=== PATIENT | female | born 1940 | race Caucasian/White ===

== ENCOUNTER 2019-04-25 08:24 | Observation (INO) | payer OTHER ==
--- OUTSIDE RECORDS SUMMARY | 2019-04-25 08:26 | XMS REPORT | Summary of Care ---
:1940 Author Organization [facility] Address [address] [place] [id number] Care Team Providers Name Role Phone Freeman Aguiar Primary Care Provider Reason for Visit Reason Comments Follow-up Results Encounter Details Date Type Department Care Team Description 10/22/2018 Office Visit [facility] Robert Quintanilla Late onset Neurology-Maria Guadalupe [place] MD Alzheimer's disease [facility] [address], [address] [place], [place] disturbance ([place] [address] Dx) [phone] Allergies No Known Allergiesdocumented as of this encounter (statuses as of 10/23/2018) Medications Medication Sig Dispensed Refills Start Date End Date Status aspirin (ADULT LOW DOSE Take 81 mg by 0 Active ASPIRIN) 81 mg EC mouth daily. tablet loperamide 2 mg capsule Take 2 mg by 0 Active mouth as needed for Diarrhea. multivit with Take 1 capsule by 0 Active calcium,iron,min mouth daily. (WOMEN'S DAILY MULTIVITAMIN ORAL) donepezil 10 mg tablet Take 1 tablet by 30 tablet 3 09/24/2018 Active mouth at bedtime. mirtazapine 7.5 mg Take 1 tablet by 30 tablet 1 10/22/2018 Active tabletIndications: Late mouth daily. onset Alzheimer's disease with behavioral disturbance documented as of this encounter (statuses as of 10/23/2018) Active Problems Not on filedocumented as of this encounter (statuses as of 10/23/2018) Social History Tobacco Use Types Packs/Day Years Used Date Never Smoker Alcohol Use Drinks/Week oz/Week Comments No Sex Assigned at Date Recorded Not on file Job Start Date Occupation Industry Not on file Not on file Not on file Travel History Travel Start Travel End No recent travel history available. documented as of this encounter Last Filed Vital Signs Vital Sign Reading Time Taken Comments Blood Pressure - - Pulse - - Temperature - - Respiratory Rate - - Oxygen Saturation - - Inhaled Oxygen Concentration - - Weight 54.6 kg (120 lb 6 oz) 10/22/2018 3:33 PM CDT Height 157.5 cm (5' 2") 10/22/2018 3:33 PM CDT Body Mass Index 22.02 10/22/2018 3:33 PM CDT documented in this encounter Patient Instructions Patient InstructionsRobert Quintanilla MD - 10/22/2018 3:20 PM CDT documented in this encounter Progress Notes Robert Quintanilla MD - 10/22/2018 3:20 PM CDT Christine Alcaraz is a 78 year old female. Chief complaint: Dementia, behavioral abnormalities. History: The patient does return, the has been concerned about behavioral abnormalities including agitation, he was wanting some medication treatments for alleviation of this symptomatology. Chuyita sent over a note that said the episodes that she experiences relate to extreme confusion, anger,crying , and paranoia. There may be no particular trigger for these events either. Past Medical History: No other active health problems. Allergies: No medications. Family History: Maternal/Paternal grandparents: No data was provided by the patient. Aunts/uncles(maternal/paternal): No data was provided by the patient. Mother/Father:No data was provided by the patient. Brothers/ Sisters:No data was provided by the patient. Children/Other:No data was provided by the patient. Surgeries: Breast implants. Social history: The patient is and retired. She does not use tobacco products and very seldom will drink a little wine. Current Outpatient Medications: mirtazapine 7.5 mg tablet, Take 1 tablet by mouth daily., Disp: 30 tablet, Rfl: 1 donepezil 10 mg tablet, Take 1 tablet by mouth at bedtime., Disp: 30 tablet , Rfl: 3 aspirin (ADULT LOW DOSE ASPIRIN) 81 mg EC tablet, Take 81 mg by mouth daily., Disp: , Rfl: loperamide 2 mg capsule, Take 2 mg by mouth as needed for Diarrhea., Disp: , Rfl: multivit with calcium,iron,min (WOMEN'S DAILY MULTIVITAMIN ORAL), Take 1 capsule by mouth daily., Disp: , Rfl: Ht 5' 2" (1.575 m) | Wt 120 lb 6 oz (54.6 kg) | BMI 22.02 kg/m General findings: EOMI/VFFTC/PERRL, no facial asymmetry, no new focal weakness of arms, UE tone unchanged, no new focal weakness of legs, LE tone unchanged. The patient was cooperative, and she will follow one step commands. The patient was cooperative during the examination and easily walked in under her own power. Her memory is pretty much gone, very concrete thinking but did not observe any word finding deficits. She was not irritable toward me. No rebound or guarding on abdominal palpation. ICD-10-CM ICD-9-CM 1. Late onset Alzheimer's disease with behavioral disturbance G30.1 331.0 F02.81 294.11 Impression: I had talked about treatment of dementia patients with behavioral problems, there are really no FDA approved medications to treat this issue, but Depakote is something that has been used for mood stabilization, PRN clonazepam is also been utilized however there is a risk of complications with senior citizens like falling for example. 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 I had also mentioned the use of mirtazapine, it may help people settle at nightwhen there is increasing agitation in the evenings. After discussion with the patients , adecision was made to start mirtazapine. Initially the dosage will be 7.5 mg per day and this can be increased as needed. A dosage for example could be added in the evening. The of the patient will otherwise keep the office posted concerning his progress. 13 minutes of the 25 minute office visit was spent discussing the treatment for aberrant behavior is in Alzheimer's type dementia's. Creation of the note was aided by utilizing a cut/paste operation of text from a Microsoft Word template created with [employer]. The text was dictated into the template via Dragon Naturally Speaking. documented in this encounter Plan of Treatment Health Maintenance Due Date Last Done Comments DTaP,Tdap,and Td Vaccines (1 - Tdap) 1959 Zoster Recombinant Vaccine (SHINGRIX) (1 of 2) 1990 Medicare Wellness Visit 2005 Osteoporosis Screening 2005 PNEUMOCOCCAL VACCINES 65+ (1 of 2 - PCV13) 2005 INFLUENZA VACCINE 11/25/2018 documented as of this encounter Results Not on filedocumented in this encounter Visit Diagnoses Diagnosis Late onset Alzheimer's disease with behavioral disturbance - Primary documented in this encounter Insurance Payer Benefit Plan Subscriber ID Effective Dates Phone Address Type / Group [employer] - CHOICE CARE [id number] 2017-Presen Medicare Adv MANAGED t PPO MEDICARE documented as of this encounter
--- OUTSIDE RECORDS SUMMARY | 2019-04-25 08:26 | XMS REPORT ---
:1940 Author Organization [facility] Address [address] [place] [address] Dr. Oliva [address] [place] [address] Care Team Providers Name Role Phone Unavailable Unavailable Unavailable Problems This patient has no known problems. Allergies, Adverse Reactions, Alerts This patient has no known allergies or adverse reactions. Medications This patient has no known medications.
[2019-04-25] MEDS ORDERED: NA CHLORIDE 0.9% 500 ML ONE ×2 (08:38→11:52)
[2019-04-25] MEDS ORDERED: ONDANSETRON 4 MG/2 ML VIAL ONE (08:38)
[2019-04-25 09:15] LABS: Absolute Lymphocytes (CBC) 3.5 K/uL (0.7-4.9); Basophils % 1.4 % (0-1.3); Hematocrit 41.9 % (36.0-45.0); Lymphocytes % 43.9 % (15.3-44.8); MPV 8.8 fL (7.6-11.3); RBC Red Blood Cell Count 4.65 M/uL (3.86-4.86)
[2019-04-25 09:31] LABS: ALT/SGPT 20 U/L (12-78); AST/SGOT 21 U/L (15-37); Albumin 3.1 g/dL (3.4-5.0); Alkaline Phosphatase 72 U/L (45-117); BUN Blood Urea Nitrogen 14 mg/dL (7-18); Bicarbonate 25 mmol/L (21-32); Bilirubin Direct 0.1 mg/dL (0-0.2); Bilirubin Total 0.4 mg/dL (0.2-1.0); Glucose Level 100 mg/dL (74-106); Lipase 129 U/L (73-393); Potassium 3.3 mmol/L (3.5-5.1); Protein, Total 6.7 g/dL (6.4-8.2); Sodium Level 143 mmol/L (136-145); Troponin (Emerg Dept Use Only) < 0.02 ng/mL (0.0-0.045)
--- NOTE | 2019-04-25 10:02 | RAD REPORT ---
EXAM DESCRIPTION: CT - Head Brain Wo Cont - 04/25/2019 9:42 am CLINICAL HISTORY: Headache/vomiting COMPARISON: 2012 MRI TECHNIQUE: Computed axial tomography of the head was obtained. IV contrast was not requested. All CT scans are performed using dose optimization technique as appropriate and may include automated exposure control or mA/KV adjustment according to patient size. FINDINGS: An intracranial bleed is not seen . The ventricles are normal in caliber. No extra-axial fluid collection is noted. Diffuse cerebral atrophy Fluid within the sinuses/ mastoids is not seen. IMPRESSION: No acute intracranial abnormality is seen. If patient's symptoms persist MRI of the bra in would be recommended.
--- NOTE | 2019-04-25 10:08 | RAD REPORT ---
EXAM DESCRIPTION: CT - Abdomen Pelvis W Contrast - 04/25/2019 9:44 am CLINICAL HISTORY: Abdominal pain and vomiting COMPARISON: 2010 TECHNIQUE: Computed axial tomography of the abdomen pelvis was obtained. 100 cc Isovue-300 was admin istered intravenously. Oral contrast was not requested which limits evaluation of bowel. All CT scans are performed using dose optimization technique as appropriate and may include automated exposure control or mA/KV adjustment according to patient size. FINDINGS: The liver, spleen, pancreas, adrenal and kidneys appear unremarkable. Normal appendix. No evidence of diverticulitis. The wall of portions of the ascending colon, descending colon and transverse colon appear mildly to m oderately thickened. This likely indicates a colitis. High-grade stenosis involves the celiac artery IMPRESSION: Mild to moderate colitis
[2019-04-25 11:08] LABS: Urine Blood NEGATIVE (NEG); Urine Glucose NEGATIVE (NEG); Urine Protein NEGATIVE (NEG); Urine Specific Gravity 1.015 (1.005-1.030); Urine pH 6.5 (5.0-7.0)
[2019-04-25 11:11] LABS: Urine Bacteria <20 /HPF (<20); Urine RBC <5 /HPF (NONE SEEN)
[2019-04-25 11:12] LABS: Urine Culture Reflex Order NOT NEEDED
--- NOTE | 2019-04-25 11:17 | EKG ---
Test Date: 2019-04-25 Test Time: 09:08:27 Power Shovel Mechanic: DELORES MEASUREMENT RESULTS: Intervals: Rate: 70 MS: 216 QRSD: 68 QT: 422 QTc: 455 [place]: P: 74 MS: 216 QRS: 30 T: 49 INTERPRETIVE STATEMENTS: Sinus rhythm with sinus arrhythmia with 1st degree AV block Low voltage QRS Borderline ECG Compared to ECG 11/28/2006 05:58:29 First degree AV block now present Sinus bradycardia no longer present Electronically Signed On 04-25-19 11:16:01 DEV OPS ENGINEER by Floyd Carias
[2019-04-25] MEDS ORDERED: CIPROFLOXACIN 400mg IV 400 MG/200 ML BAG IV ONE (11:52)
[2019-04-25] MEDS ORDERED: METRONIDAZOLE 500mg IVPB 500 MG/100 ML BAG IV ONE ×2 (11:52→21:51)
--- NOTE | 2019-04-25 11:56 | ER ---
Nurse's Notes [facility] Name: Christine Alcaraz Age: 79 yrs Sex: Female : 1940 Arrival Date: 04/25/2019 Time: 08:27 Bed 23 Private MD: Diagnosis: Colitis;Dehydration Presentation: 04/25 08:28 Presenting complaint: states: Riding down the road and she said her stomach jl7 hurt and then vomited. Transition of care: patient was not received from another setting of care. Onset of symptoms was April 25, 2019. Risk Assessment: Do you want to hurt yourself or someone else? Patient reports no desire to harm self or others. 08:28 Method Of Arrival: Wheelchair jl7 08:28 Acuity: AYLIN 3 jl7 08:30 Care prior to arrival: None. jl7 08:32 Initial Sepsis Screen: Does the patient meet any 2 criteria? No. Patient's initial jl7 sepsis screen is negative. Does the patient have a suspected source of infection? No. Patient's initial sepsis screen is negative. Historical: - Allergies: 08:30 No Known Allergies; jl7 - Home Meds: 15:44 donepezil oral oral [Active]; jl7 - PMHx: 08:30 Alzheimers; jl7 - Immunization history:: Adult Immunizations unknown. - Coronavirus screen:: The patient has NOT traveled to [place], [place], or [place] in the past 14 days. Proceed with normal triage process as indicated. - Social history:: Smoking status: Patient denies any tobacco usage or history of. - Family history:: not pertinent. - Ebola Screening: : No symptoms or risks identified at this time. - Hospitalizations: : No recent hospitalization is reported. Screenin:31 Abuse screen: Denies threats or abuse. Denies injuries from another. Nutritional jl7 screening: No deficits noted. Tuberculosis screening: No symptoms or risk factors identified. Fall Risk IV access (20 points). Total Tan Fall Scale indicates No Risk (0-24 pts). 08:31 Abuse screen: Denies threats or abuse. Denies injuries from another. Nutritional ph screening: No deficits noted. Tuberculosis screening: No symptoms or risk factors identified. Fall Risk No fall in past 12 months (0 pts). Secondary diagnosis (15 points) Alzheimer's, IV access (20 points). Ambulatory Aid- None/Bed Rest/Nurse Assist (0 pts). Gait- Weak (10 pts.). Mental Status- Oriented to own ability (0 pts). Total Tan Fall Scale indicates High Risk Score (45 or more points). Fall prevention measures have been instituted. Side Rails Up X 2 Placed Close to Nursing Station Frequent Obs/Assessments Occuring Family Present and informed to notify staff if the need to leave the bedside As available patient and family educated on Fall Prevention Program and Strategies. Assessment: 08:30 General: Appears in no apparent distress. uncomfortable, Behavior is calm, cooperative. jl7 Pain: Denies pain. Neuro: Level of Consciousness is awake, alert, obeys commands, Oriented to person. Cardiovascular: Patient's skin is warm and dry. Respiratory: Airway is patent Respiratory effort is even, unlabored, Respiratory pattern is regular, symmetrical. GI: Abdomen is non-distended, Abd is soft and non tender X 4 quads. Reports nausea, vomiting. : No signs and/or symptoms were reported regarding the genitourinary system. Derm: Skin is dry, Skin is pale, Skin temperature is cool. 09:30 Reassessment: Patient appears in no apparent distress at this time. No changes from jl7 previously documented assessment. Patient and/or family updated on plan of care and expected duration. Pain level reassessed. remains at bedside. 10:30 Reassessment: Patient appears in no apparent distress at this time. No changes from jl7 previously documented assessment. Patient and/or family updated on plan of care and expected duration. Pain level reassessed. 11:00 Reassessment: Pt appears to be agitated, refusing to keep BP cuff and pulse ox on, jl7 environmental compliance manager remains in place. 12:30 Reassessment: Pt sitting in bed with eyes closed, respirations even and unlabored, no jl7 signs of distress noted at this time. 12:56 Reassessment: Pt's , Sharif Alcaraz, , will be back in a little while. jl7 13:10 Reassessment: Pt appeared to be uncomfortable, when asked she stated "I don't know but jl7 I just don't feel good. I could easily throw up right now." ERD notified, see MAR for orders. 16:55 Reassessment: Pt very agitated, refusing to stay in the bed, attempting to DC IV, ERD jl7 notified, see MAR for orders. 17:25 Reassessment: Increased agitation noted, Pt keeps trying to walk around the ER halls, jl7 ERD notified, see MAR for orders. 17:45 Reassessment: Pt remains very agitated, ERD notified, see MAR for orders. jl7 23:14 Reassessment: pt becoming restless. hitting nursing staff. ER MD notified. order for jd3 Ativan 1 mg IVP ordered. see MAR. Vital Signs: 08:30 BP 102 / 53; Pulse 74; Resp 16 S; Temp 97.4(O); Pulse Ox 97% on R/A; jl7 09:22 BP 95 / 56; Pulse 63; Resp 15 S; Pulse Ox 96% on R/A; jl7 10:50 BP 92 / 57; Pulse 61; Resp 15 S; Pulse Ox 97% on R/A; jl7 ED Course: 08:27 Patient arrived in ED. ag5 08:29 Triage completed. jl7 08:30 Arm band placed on right wrist. jl7 08:31 Inserted saline lock: 22 gauge in right antecubital area, using aseptic technique. ph Blood collected. 08:31 Patient has correct armband on for positive identification. Placed in gown. Bed in low jl7 position. Call light in reach. Side rails up X2. Adult w/ patient. emergency department coordinator on. Pulse ox on. NIBP on. Warm blanket given. 08:33 Charly De Leon MD is Attending Physician. rn 08:43 Denise Mcdonald RN is Primary Nurse. jl7 09:11 XRAY Chest (1 view) In Process Unspecified. EDMS 09:19 Inserted saline lock: 22 gauge in right antecubital area, using aseptic technique. dh3 Blood collected. 09:22 Initial lab(s) drawn, by ED staff, sent to lab. jl7 09:24 Lactate Sent. dh3 09:42 CT Head Brain wo Cont In Process Unspecified. EDMS 09:42 CT Abd/Pelvis - IV Contrast Only In Process Unspecified. EDMS 10:48 Urine collected: straight cath specimen, clear. Straight cath inserted, using sterile jl7 technique, 16 Fr. Specimen obtained. Returned clear yellow urine. Patient tolerated well. 11:55 Freeman Aguiar MD is Hospitalizing Provider. rn 12:57 No provider procedures requiring assistance completed. Patient admitted, IV remains in jl7 place. intact, No redness/swelling at site. Administered Medications: 08:35 Drug: Zofran 4 mg Route: IVP; Site: right wrist; jl7 09:00 Follow up: Response: No adverse reaction; Nausea is decreased jl7 08:35 Drug: NS 0.9% 500 ml Route: IV; Rate: bolus; Site: right wrist; jl7 09:00 Follow up: Response: No adverse reaction; IV Intake: 500ml jl7 09:00 Follow up: IV Status: Completed infusion jl7 12:00 Drug: NS 0.9% 500 ml Route: IV; Rate: bolus; Site: right antecubital; jl7 13:20 Follow up: Response: No adverse reaction; IV Status: Completed infusion; IV Intake: jl7 500ml 12:00 Drug: Cipro 400 mg Volume: 200 ml; Route: IVPB; Infused Over: 60 mins; Site: right jl7 antecubital; 13:00 Follow up: Response: No adverse reaction; IV Status: Completed infusion jl7 12:20 Drug: Flagyl 500 mg Volume: 100 ml; Route: IVPB; Rate: 200 ml/hr; Infused Over: 30 jl7 mins; Site: right antecubital; 12:50 Follow up: Response: No adverse reaction; IV Status: Completed infusion jl7 13:15 Drug: Phenergan 6.25 mg Route: IVP; Site: right antecubital; jl7 14:00 Follow up: Response: No adverse reaction; Nausea is decreased jl7 17:00 Drug: Ativan 0.25 mg Route: IVP; Site: right antecubital; jl7 17:25 Follow up: Response: No change in condition jl7 17:30 Drug: Ativan 0.25 mg Route: IVP; Site: right antecubital; jl7 17:49 Follow up: Response: No adverse reaction; No change in condition jl7 18:05 Drug: SEROquel 25 mg Route: PO; jl7 23:16 CANCELLED (Physician Discretion): Ativan 1 mg IVP once jd3 23:17 Drug: Ativan 1 mg Route: IVP; Site: right antecubital; jd3 Intake: 09:00 IV: 500ml; Total: 500ml. jl7 13:20 IV: 500ml; Total: 1000ml. jl7 Outcome: 11:56 Decision to Hospitalize by Provider. rn 04/26 14:41 Patient left the ED. ss Signatures: Dispatcher [employer] EDMS Charly De Leon MD MD rn Smirch, Shelby, RN RN ss Hall, Patricia, RN RN Denise Mcdonald RN RN jl7 [facility] Bobby Smiley RN RN jRafael Chatman ag5 Corrections: (The following items were deleted from the chart) 04/25 09:19 08:28 Presenting complaint: states: Riding down the road and she said he jl7 stomach hurt and then vomited jl7
--- NOTE | 2019-04-25 11:56 | EDPHYS ---
Physician Documentation [facility] Name: Christine Alcaraz Age: 79 yrs Sex: Female : 1940 Arrival Date: 04/25/2019 Time: 08:27 Bed 23 Private MD: ED Physician Charly De Leon HPI: 04/25 08:41 This 79 yrs old Female presents to ER via Wheelchair with complaints of rn nausea/vomiting. 08:41 The patient presents to the emergency department with nausea, vomiting. Onset: The rn symptoms/episode began/occurred today. Possible causes: unknown. The symptoms are aggravated by nothing. The symptoms are alleviated by nothing. Severity of symptoms: At their worst the symptoms were moderate in the emergency department the symptoms are unchanged. The patient has not experienced similar symptoms in the past. The patient has not recently seen a physician. 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 Denies headache/focal neuro complaint/abd pain/diarrhea. Shaking, but unknown if fever.. Historical: - Allergies: 08:30 No Known Allergies; jl7 - Home Meds: 15:44 donepezil oral oral [Active]; jl7 - PMHx: 08:30 Alzheimers; jl7 - Immunization history:: Adult Immunizations unknown. - Coronavirus screen:: The patient has NOT traveled to [place], [place], or [place] in the past 14 days. Proceed with normal triage process as indicated. - Social history:: Smoking status: Patient denies any tobacco usage or history of. - Family history:: not pertinent. - Ebola Screening: : No symptoms or risks identified at this time. - Hospitalizations: : No recent hospitalization is reported. ROS: 08:41 Constitutional: Negative for fever, chills, and weight loss, Eyes: Negative for injury, rn pain, redness, and discharge, Neck: Negative for injury, pain, and swelling, Cardiovascular: Negative for chest pain, palpitations, and edema, Respiratory: Negative for shortness of breath, cough, wheezing, and pleuritic chest pain, Abdomen/GI: Negative for abdominal pain,diarrhea, and constipation, : Negative for injury, bleeding, discharge, and swelling, MS/Extremity: Negative for injury and deformity, Skin: Negative for injury, rash, and discoloration, Neuro: Negative for headache, weakness, numbness, tingling, and seizure. Exam: 08:41 Constitutional: This is a well developed, well nourished patient who is awake, alert, rn sitting upright and holding emesis bag Head/Face: Normocephalic, atraumatic. ENT: MMM Neck: Trachea midline, no thyromegaly or masses palpated, and no cervical lymphadenopathy. Supple, full range of motion without nuchal rigidity, or vertebral point tenderness. No Meningismus. Cardiovascular: Regular rate and rhythm. No pulse deficits. Respiratory: No increased work of breathing, no retractions or nasal flaring. Abdomen/GI: soft, non-tender MS/ Extremity: Pulses equal, no cyanosis. Neurovascular intact. Full, normal range of motion. Equal circumference. Neuro: Awake and alert, GCS 15, oriented to person, place. Cranial nerves II-XII grossly intact. Motor strength 4/5 in all extremities. Sensory grossly intact. Vital Signs: 08:30 BP 102 / 53; Pulse 74; Resp 16 S; Temp 97.4(O); Pulse Ox 97% on R/A; jl7 09:22 BP 95 / 56; Pulse 63; Resp 15 S; Pulse Ox 96% on R/A; jl7 10:50 BP 92 / 57; Pulse 61; Resp 15 S; Pulse Ox 97% on R/A; jl7 MDM: 08:33 Patient medically screened. rn 11:53 Differential diagnosis: Nonspecific abd pain, gastritis, diverticulitis, viral rn gastroenteritis, gastroenteritis, colitis. Data reviewed: vital signs, nurses notes, lab test result(s), EKG, radiologic studies, CT scan, and as a result, I will admit patient. Counseling: I had a detailed discussion with the patient and/or guardian regarding: the historical points, exam findings, and any diagnostic results supporting the discharge/admit diagnosis, lab results, radiology results, the need for further work-up and treatment in the hospital. Response to treatment: the patient's symptoms have mildly improved after treatment, and as a result, I will admit patient. Admission orders: after a detailed discussion of the patient's condition and case, the admit orders are written by me. ED course: Will admit to Shawn Aguiar for moderate colitis, borderline BP, feels a little better. Abx administered. . 04/25 08:41 Order name: Basic Metabolic Panel; Complete Time: 10:17 rn 04/25 08:41 Order name: CBC with Diff; Complete Time: 12:54 rn 04/25 08:41 Order name: Creatinine for Radiology; Complete Time: 10:17 rn 04/25 08:41 Order name: Hepatic Function; Complete Time: 10:17 rn 04/25 08:41 Order name: Lipase; Complete Time: 10:17 rn 04/25 08:41 Order name: Urine Culture rn 04/25 08:41 Order name: Urine Microscopic Only; Complete Time: 11: rn 04/25 08:41 Order name: Procalcitonin; Complete Time: 10: rn 04/25 08:41 Order name: Lactate; Complete Time: 10: rn 04/25 08:41 Order name: Troponin (emerg Dept Use Only); Complete Time: 10: rn 04/25 10:49 Order name: Urine Dipstick--Ancillary (enter results); Complete Time: 11:26 eb 04/25 12:35 Order name: Manual Differential; Complete Time: 12:54 EDMS 04/26 06:09 Order name: Basic Metabolic Panel EDMS 04/26 06:13 Order name: CBC with Automated Diff EDMS 04/25 08:41 Order name: CT Head Brain wo Cont; Complete Time: 10:17 rn 04/25 08:41 Order name: CT Abd/Pelvis - IV Contrast Only; Complete Time: 10: rn 04/25 08:41 Order name: EKG; Complete Time: 08:42 rn 04/25 08:44 Order name: XRAY Chest (1 view); Complete Time: 14:21 rn 04/25 16:49 Order name: Diet Clear Liquid; Complete Time: 16:49 dh3 04/25 08:41 Order name: IV Saline Lock; Complete Time: 09:18 rn 04/25 08:41 Order name: Labs collected and sent; Complete Time: 09:18 rn 04/25 08:41 Order name: Urine Dipstick-Ancillary (obtain specimen); Complete Time: 10:48 rn 04/25 08:41 Order name: EKG - Nurse/Tech; Complete Time: 09:19 rn Administered Medications: 08:35 Drug: Zofran 4 mg Route: IVP; Site: right wrist; jl7 09:00 Follow up: Response: No adverse reaction; Nausea is decreased jl7 08:35 Drug: NS 0.9% 500 ml Route: IV; Rate: bolus; Site: right wrist; jl7 09:00 Follow up: Response: No adverse reaction; IV Intake: 500ml jl7 09:00 Follow up: IV Status: Completed infusion jl7 12:00 Drug: NS 0.9% 500 ml Route: IV; Rate: bolus; Site: right antecubital; jl7 13:20 Follow up: Response: No adverse reaction; IV Status: Completed infusion; IV Intake: jl7 500ml 12:00 Drug: Cipro 400 mg Volume: 200 ml; Route: IVPB; Infused Over: 60 mins; Site: right jl7 antecubital; 13:00 Follow up: Response: No adverse reaction; IV Status: Completed infusion jl7 12:20 Drug: Flagyl 500 mg Volume: 100 ml; Route: IVPB; Rate: 200 ml/hr; Infused Over: 30 jl7 mins; Site: right antecubital; 12:50 Follow up: Response: No adverse reaction; IV Status: Completed infusion jl7 13:15 Drug: Phenergan 6.25 mg Route: IVP; Site: right antecubital; jl7 14:00 Follow up: Response: No adverse reaction; Nausea is decreased jl7 17:00 Drug: Ativan 0.25 mg Route: IVP; Site: right antecubital; jl7 17:25 Follow up: Response: No change in condition jl7 17:30 Drug: Ativan 0.25 mg Route: IVP; Site: right antecubital; jl7 17:49 Follow up: Response: No adverse reaction; No change in condition jl7 18:05 Drug: SEROquel 25 mg Route: PO; jl7 23:16 CANCELLED (Physician Discretion): Ativan 1 mg IVP once jd3 23:17 Drug: Ativan 1 mg Route: IVP; Site: right antecubital; jd3 Disposition: 04/25/19 11:56 Hospitalization ordered by Freeman Aguiar for Observation. Preliminary diagnosis are Colitis, Dehydration. - Bed requested for [facility] ER HOLD. - Status is Observation. ss - Condition is Stable. - Problem is new. - Symptoms have improved. UTI on Admission? No Signatures: Dispatcher [employer] EDMS Charly De Leon MD MD rn Smirch, Shelby, RN RN ss Denise Mcdonald RN RN jl7 Bobby Smiley RN RN jd3 Jessie Rico Corrections: (The following items were deleted from the chart) 15:28 11:56 Hospitalization Ordered by Freeman Aguiar MD for Observation. Preliminary diagnosis eb is Colitis; Dehydration. Bed requested for Telemetry/MedSurg (observation). Status is Observation. Condition is Stable. Problem is new. Symptoms have improved. UTI on Admission? No. rn 23:16 23:16 Ativan 1 mg IVP once ordered. ilan jdave 04/26 14:41 04/25 15:28 04/25/2019 11:56 Hospitalization Ordered by Freeman Aguiar MD for ss Observation. Preliminary diagnosis is Colitis; Dehydration. Bed requested for [facility] ER HOLD. Status is Observation. Condition is Stable. Problem is new. Symptoms have improved. UTI on Admission? No. eb
[2019-04-25 12:34] LABS: Blood Morphology Comment NOT SEEN (NOT SEEN); Platelet Estimate ADEQ
[2019-04-25] MEDS ORDERED: PROMETHAZINE INJ 25 MG/ML AMP ONE (13:13)
--- NOTE | 2019-04-25 13:58 | RAD REPORT ---
EXAM DESCRIPTION: Alison Single View04/25/2019 9:10 am CLINICAL HISTORY: Chest pain COMPARISON: 2010 FINDINGS: The lungs appear clear of acute infiltrate. The heart is normal size IMPRESSION: No acute abnormalities displayed
[2019-04-25] MEDS ORDERED: LORazepam 2 MG/ML VIAL ONE ×2 (16:50→23:09)
[2019-04-25 17:35] VITALS: BMI 20.1
[2019-04-25] MEDS ORDERED: QUETIAPINE 25 MG TAB PO ONE (18:00)
[2019-04-25] MEDS ORDERED: ONDANSETRON 4 MG/2 ML VIAL IV PRN (19:16)
[2019-04-25] MEDS ORDERED: WATER FOR INJ,STERILE 10 ML ONE (19:24)
[2019-04-25] MEDS ORDERED: ZIPRASIDONE MESYLA 20 MG/VIAL IM ONE (19:24)
[2019-04-25] MEDS ORDERED: ZIPRASIDONE MESYLA 20 MG/VIAL IM PRN (19:39)
[2019-04-25] MEDS ORDERED: WATER FOR INJ,STERILE 10 ML IM PRN (19:39)
--- NOTE | 2019-04-25 21:42 | P.HP ---
Certification for Inpatient Patient admitted to: Observation With expected LOS: <2 Midnights Practitioner: I am a practitioner with admitting privileges, knowledge of patient current condition, hospital course, and medical plan of care. Services: Services provided to patient in accordance with Admission requirements found in Title 42 Section 412.3 of the Code of Federal Regulations Patient History Date of Service: 04/25/19 Reason for admission: DIARRHEA, VOMITING AND ALMOST PASSED OUT TODAY. History of Present Illness: I HAVE NOT SEEN MRS. PARTIDA FOR 10 YEARS. HER TAKES HER TO ONLY DR. HARRIS FOR DEMENTIA THAT IS SEVERE. SHE WAS IN STABLE HEALTH UNTIL YESTERDAY AND TODAY WHEN SHE STARTED HAVING NAUSEA, VOMITING AND DIARRHEA. SHE IS HOME BOUND. HE TAKES CARE OF HER AND TWO GRANDKIDS THEY HAVE INHERITED. SHE AT TIMES WANDERS OUT OF HOUSE BUT HE HAS ALARM SYSTEM FOR IT. Allergies No Known Allergies Allergy (Unverified 04/25/19 15:46) Home Medications: Donepezil HCl 10 mg PO DAILY 04/25/19 Mirtazapine 7.5 mg PO DAILY 04/25/19 - Past Medical/Surgical History Has patient received pneumonia vaccine in the past: Yes Diabetic: No -: alzheimer's - Family History Mother History Unknown: Yes - Social History Smoking Status: Never smoker Alcohol use: No CD- Drugs: No Caffeine use: No Place of Residence: Home Review of Systems 10-point ROS is otherwise unremarkable Gastrointestinal: Abdominal Pain (AFTER FOOD AT TIMES. ) Physical Examination - Vital Signs Temperature: 97.8 F Blood Pressure: 111/62 Pulse: 68 Respirations: 17 Pulse Ox (%): 97 - Physical Exam General: Alert, Mild distress, Confused HEENT: Atraumatic, PERRLA, Mucous membr. moist/pink, EOMI, Sclerae nonicteric Neck: Supple, 2+ carotid pulse no bruit, No LAD, Without JVD or thyroid abnormality Respiratory: Clear to auscultation bilaterally, Normal air movement Cardiovascular: Regular rate/rhythm, Normal S1 S2 Gastrointestinal: Normal bowel sounds, No tenderness Musculoskeletal: No tenderness Integumentary: No rashes Neurological: Dementia Lymphatics: No axilla or inguinal lymphadenopathy - Studies Laboratory Data (last 24 hrs) 04/25/19 08:35: Creatinine 1.15 04/25/19 08:35: WBC 7.9, Hgb 14.1, Hct 41.9, Plt Count 307 04/25/19 08:35: Sodium 143, Potassium 3.3 L, BUN 14, Creatinine 1.10, Glucose 100, Total Bilirubin 0.4, AST 21, ALT 20, Alkaline Phosphatase 72, Lipase 129 Assessment and Plan - Problems (Diagnosis) (1) Viral gastroenteritis Current Visit: Yes Status: Acute Plan: FOR THIS SHE SHOULD BE ABLE TO GO HOME IN AM. SHE HAS SEVERE DEMENTIA SO SHE WILL NEED CONSTANT SUPERVISION. RESUME MEDS. 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 HE SAYS THAT SHE COMPLAINS OF PAIN AFTER FOOD. I SUGGESTED TO TAKE HER TO DR. SAAB FOR POSIBLE STENT IN CELIAC ARTERY. - Advance Directives Does patient have a Living Will: Yes Does patient have a Durable POA for Healthcare: Yes
[2019-04-25] MEDS ORDERED: NA CHLORIDE 0.9% 1,000 ML ONE (21:50)
[2019-04-25] MEDS ORDERED: Ciprofloxacin 200mg IV 200 MG/100 ML IV.SOLN. IV ONE (21:50)
[2019-04-25] MEDS: METRONIDAZOLE 500mg IVPB 500 MG/100 ML BAG IV SCH (22:00)
[2019-04-25] MEDS: NA CHLORIDE 0.9% 1,000 ML IV SCH (22:00)
[2019-04-25] MEDS: Ciprofloxacin 200mg IV 200 MG/100 ML IV.SOLN. IV SCH (23:00)
[2019-04-26] MEDS ORDERED: MIRTAZAPINE 15 MG TAB PO SCH (02:00)
[2019-04-26] MEDS ORDERED: MIRTAZAPINE 15 MG TAB ONE (02:31)
[2019-04-26] MEDS ORDERED: METRONIDAZOLE 500mg IVPB 500 MG/100 ML BAG IV ONE ×2 (03:37→07:30)
[2019-04-26] MEDS: METRONIDAZOLE 500mg IVPB 500 MG/100 ML BAG IV SCH ×3 (03:45→09:00)
[2019-04-26] MEDS: NA CHLORIDE 0.9% 1,000 ML IV SCH (05:16)
[2019-04-26] MEDS ORDERED: NA CHLORIDE 0.9% 1,000 ML ONE (05:22)
[2019-04-26 06:08] LABS: Potassium 4.1 mmol/L (3.5-5.1)
[2019-04-26 06:09] LABS: Absolute Lymphocytes (CBC) 1.6 K/uL (0.7-4.9); Hematocrit 37.4 % (36.0-45.0); Lymphocytes % 29.8 % (15.3-44.8); MPV 8.7 fL (7.6-11.3); RBC Red Blood Cell Count 4.12 M/uL (3.86-4.86)
[2019-04-26] MEDS ORDERED: Ciprofloxacin 200mg IV 200 MG/100 ML IV.SOLN. IV ONE (07:30)
[2019-04-26] MEDS: Ciprofloxacin 200mg IV 200 MG/100 ML IV.SOLN. IV SCH (07:43)
[2019-04-26 09:03] VITALS: O2SAT 99
[2019-04-26 12:17] VITALS: BP 114/77; TEMP 98.1
[2019-04-26] MEDS ORDERED: DONEPEZIL HCL 5 MG TAB PO SCH (21:00)
--- NOTE | 2019-04-26 23:10 | P.DS ---
Admission Date: 04/25/19 Discharge Date: 04/26/19 Disposition: ROUTINE DISCHARGE Discharge Condition: FAIR Reason for Admission: DIARRHEA, VOMITING AND ALMOST PASSED OUT TODAY. - Problems (1) Viral gastroenteritis Status: Acute (2) Pain in the abdomen Status: Acute Brief History of Present Illness: I HAVE NOT SEEN MRS. PARTIDA FOR 10 YEARS. HER TAKES HER TO ONLY DR. HARRIS FOR DEMENTIA THAT IS SEVERE. SHE WAS IN STABLE HEALTH UNTIL YESTERDAY AND TODAY WHEN SHE STARTED HAVING NAUSEA, VOMITING AND DIARRHEA. SHE IS HOME BOUND. HE TAKES CARE OF HER AND TWO GRANDKIDS THEY HAVE INHERITED. SHE AT TIMES WANDERS OUT OF HOUSE BUT HE HAS ALARM SYSTEM FOR IT. Hospital Course: MRS. PARTIDA IS SEVERELY DEMENTED LADY WHO HAD VIRAL GASTROENTERITIES, CLINICALLY IMPROVED. SHE IS ABLE TO WALK AND EAT WITHOUT VOMITING. SHE IS STABLE FOR DISCHARGE. SHE HAS CELIAC ARTERY STENOSIS AND WILL GO TO DR. SAAB FOR IT. LAST TIME I SAW HER WAS ABOUT 10 YEARS AGO. DOES NOT TAKE HER TO ANYONE BUT DR. HARRIS FOR DEMENTIA THAT NOT GOING TO IMPROVE. 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 IS AWARE. Vital Signs/Physical Exam: Temp Pulse Resp BP Pulse Ox 98.1 F 65 19 114/77 97 04/26/19 12:00 04/26/19 12:00 04/26/19 12:00 04/26/19 12:00 04/26/19 12:00 Laboratory Data at Discharge: WBC 5.2 K/uL (4.3-10.9) D 04/26/19 05:23 Hgb 12.4 g/dL (12.0-15.0) 04/26/19 05:23 Hct 37.4 % (36.0-45.0) 04/26/19 05:23 Plt Count 219 K/uL (152-406) D 04/26/19 05:23 Sodium 148 mmol/L (136-145) H 04/26/19 05:23 Potassium 4.1 mmol/L (3.5-5.1) 04/26/19 05:23 BUN 10 mg/dL (7-18) 04/26/19 05:23 Creatinine 0.98 mg/dL (0.55-1.3) 04/26/19 05:23 Glucose 94 mg/dL (74-106) 04/26/19 05:23 Total Bilirubin 0.4 mg/dL (0.2-1.0) 04/25/19 08:35 AST 21 U/L (15-37) 04/25/19 08:35 ALT 20 U/L (12-78) 04/25/19 08:35 Alkaline Phosphatase 72 U/L (45-117) 04/25/19 08:35 Lipase 129 U/L (73-393) 04/25/19 08:35 Home Medications: Donepezil HCl 10 mg PO DAILY 04/25/19 Mirtazapine 7.5 mg PO DAILY 04/25/19 Diet: Regular
== END 2019-04-26 14:41 | disposition home or self-care (01) ==
LOC: ER 08:24 → ERHOLD 14:23
PROVIDERS: ADMIT Internal Medicine; ATTEND Internal Medicine
DX: A08.4 Viral intestinal infection, unspecified (principal); R10.9 Unspecified abdominal pain; I77.4 Celiac artery compression syndrome; F03.90 Unspecified dementia, unspecified severity, without behavioral disturbance, psychotic disturbance, mood disturbance, and anxiety
CPT/HCPCS: 96365; 96361; 96368; 93005; 85025 ×2; 80048 ×2; 36415; 80076; 83605; 84484; 83690; 84145; 70450; 74177; 71045; 51702; 96375; 99284; Q9967; J2550; J3486; J0744 ×3; J7040 ×2; J7030 ×2; J2405; G0378 ×3; 81003; 81015

== ENCOUNTER 2019-11-14 10:56 | Emergency (ER) | payer OTHER ==
[2019-11-14] MEDS ORDERED: ONDANSETRON 4 MG/2 ML VIAL ONE (11:40)
--- OUTSIDE RECORDS SUMMARY | 2019-11-14 12:12 | XMS REPORT | Summary of Care ---
:1940 Author Organization [facility] Address [address] [place] [address] Care Team Providers Name Role Phone Stefania Primary Care Provider Reason for Visit Reason Onset Date Comments Refill Request 10/24/2019 Encounter Details Date Type Department Care Team Description 10/24/2019 Refill [facility] Doctor Unassigned, No Refill Request Neurology-[place] Name [address] [facility], [address] [facility] [address] [place] [address] [place] [address] Allergies No Known Allergiesdocumented as of this encounter (statuses as of 10/29/2019) Medications Medication Sig Dispensed Refills Start Date [...] Take 1 tablet by 30 tablet 3 07/12/2019 Active mouth at bedtime. documented as of this encounter (statuses as of 10/29/2019) Active Problems Not on filedocumented as of this encounter (statuses as of 10/29/2019) Social History Tobacco Use Types Packs/Day Years Used Date Never Smoker Alcohol Use Drinks/Week oz/Week Comments No Sex Assigned at Date Recorded Not on file COVID-19 Exposure Response Date Recorded In the last month, have you been in contact with No / Unsure 10/29/2019 9:42 AM CDT someone who was confirmed or suspected to have Coronavirus / COVID-19? documented as of this encounter Last Filed Vital Signs Not on filedocumented in this encounter Miscellaneous Notes Telephone Encounter - Lisa Dang LVN - 10/29/2019 1:41 PM CDTPatient was seen today. Mirtazapine was changed and sent to pharmacy. 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
--- OUTSIDE RECORDS SUMMARY | 2019-11-14 12:12 | XMS REPORT | Summary of Care ---
:1940 Author Organization [facility] Address [address] [place] [address] Care Team Providers Name Role Phone Stefania Primary Care Provider Reason for Visit Reason Comments Refill Request Encounter Details Date Type Department Care Team Description 09/20/2019 Refill [facility] Doctor Unassigned, No Refill Request Neurology-[place] Name [address] [facility], [address] [address] [place] [address] Allergies No Known Allergiesdocumented as of this encounter (statuses as of 09/23/2019) Medications Medication Sig Dispensed Refills Start Date End Date Status aspirin (ADULT LOW Take 81 mg by 0 Active DOSE ASPIRIN) 81 mouth daily. mg EC tablet loperamide 2 mg Take 2 mg by 0 A ctive capsule mouth as needed for Diarrhea. multivit with Take 1 0 Active calcium,iron,min capsule by (WOMEN'S DAILY mouth daily. MULTIVITAMIN ORAL) donepezil 10 mg Take 1 tablet 30 tablet 3 07/12/2019 Active tablet by mouth at bedtime. mirtazapine 7.5 mg Take 1 tablet 30 tablet 0 09/23/2019 Active tabletIndications: by mouth Late onset daily. Alzheimer's disease with behavioral disturbance mirtazapine 7.5 mg Take 1 tablet 30 tablet 1 07/15/2019 Discontinued tabletIndications: by mouth 0 ( Reorder) Late onset daily. Alzheimer's disease with behavioral disturbance documented as of this encounter (statuses as of 09/23/2019) Active Problems Not on filedocumented as of this encounter (statuses as of 09/23/2019) Social History Tobacco Use Types Packs/Day Years [...] Signs Not on filedocumented in this encounter Plan of Treatment Health Maintenance Due Date Last Done Comments DTaP,Tdap,and Td Vaccines (1 - Tdap) 1951 Zoster Recombinant Vaccine (SHINGRIX) (1 of 2) 1990 Medicare Wellness Visit 2005 Osteoporosis Screening 2005 PNEUMOCOCCAL VACCINES 65+ (1 of 2 - PCV13) 2005 Depression Screening 10/23/2019 10/22/2018 INFLUENZA VACCINE (Season Ended) 2019 documented as of this encounter Results Not on filedocumented in this encounter Visit Diagnoses Diagnosis 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
--- OUTSIDE RECORDS SUMMARY | 2019-11-14 12:12 | XMS REPORT | Continuity of Care Document ---
:1940 Author Organization [facility] t Address [address] [place] [address] Care Team Providers Name Role Phone Stefania RUSSELL Primary Care Physician Dwight RUSSELL, Gene Attending Clinician [facility] RUSSELL, R. 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 Social History Social Habit Start Date Stop Date Quantity Comments Source History [facility] Meth odist Alcohol Std Drinks History [facility] Meth odist Alcohol Binge Sex Assigned At F [place] M ethodist Alcohol intake 2019-07-30 2019-07-30 Ex-drinker [facility] thodist 00:00:00 00:00:00 (finding) History [facility] 2019-07-30 2019-07-30 1 [place] Meth odist Alcohol Frequency 00:00:00 00:00:00 Smoking Status Start Date Stop Date Source Never smoker Short Methodis t Medications Ordered Filled Start Stop Current Ordering Indication Dosage Frequency Signature Comments Components Source Medication Medication Date Date Medication? Clinician (SIG) Name Name loperamide Yes 2mg Take 2 mg [place] (IMODIUM) 2 5-05 by mouth. Met hodi mg capsule 13:20: st 50 aspirin 2020-0 Yes 81mg Take 81 mg [place] (ECOTRIN) 5-05 by mouth. Metho di 81 MG 13:20: st enteric 50 coated tablet multivitami 2019-0 Yes 1{capsu Take 1 [place] n-Ca-iron-m 5-05 le} capsule by Ct thdarrell inerals 13:20: mouth. st tablet 50 mirtazapine 2019-0 Yes 7.5mg Take 7.5 [place] (REMERON) 4-20 mg by Methodi 7.5 MG 00:00: mouth. st tablet 00 donepeziL 2019-0 Yes 10mg Take 10 mg [place] (ARICEPT) 4-17 by mouth. Metho di 10 MG 00:00: st tablet 00 Vital Signs Vital Name Observation Time Observation Value Comments Source Systolic blood 2019-07-30 13:18:00 127 mm[Hg] Maria Ato n [facility]ist pressure Diastolic blood 2019-07-30 13:18:00 60 mm[Hg] Maria At on [facility]ist pressure Heart rate 2019-07-30 13:18:00 63 /min [facility] [place] Body height 2019-07-30 13:18:00 157.5 cm Han [place] Body weight 2019-07-30 13:18:00 61.236 kg Han Crawford BMI 2019-07-30 13:18:00 24.69 kg/m2 Han Crawford Procedures This patient has no known procedures. Plan of Care Planned Activity Planned Date Details Comments Source Future Scheduled 2019-11-26 INFLUENZA VACCINE [place] [facility] 00:00:00 [code = INFLUENZA VACCINE] Future Scheduled 2005 65+ PNEUMOCOCCAL [facility] Test 00:00:00 VACCINE (1 of 2 - PCV13) [code = 65+ PNEUMOCOCCAL VACCINE (1 of 2 - PCV13)] Future Scheduled 1990 SHINGLES VACCINES (#1) [place] [facility] 00:00:00 [code = SHINGLES VACCINES (#1)] Encounters Start End Encounter Admission Attending Care Care Encounter Source Date/Time Date/Time Type Type Clinicians Facility Department ID 2019-10-29 2019-10-29 Office Dwight [facility] [id number] 09:41:49 10:35:49 Visit Robert Lerma [id number] Servando [id number] Carole [id number] [facility] 2019-07-30 2019-07-30 Outpatient [facility] [id number] 8 [place] 00:00:00 00:00:00 ROSALBA [address] Results This patient has no known results.
--- OUTSIDE RECORDS SUMMARY | 2019-11-14 12:12 | XMS REPORT | Summary of Care ---
:1940 Author Organization [address] [address] Care Team Providers Name Role Phone Stefania Primary Care Provider Reason for Visit Reason Comments Refill Request Encounter Details Date Type Department Care Team Description 10/24/2019 Refill [facility] Robert Quintanilla MD Refill Request Neurology-[address] [place] [id number] [address] [place] [address] [phone] Allergies No Known Allergiesdocumented as of this [...] Encounter - Lisa Dang LVN - 10/29/2019 2:48 PM CDTWas seen in the office today and medication was refilled by Dr. Quintanilla. documented in this encounter Plan of Treatment [...] Type / Group HUMANA - CHOICE CARE [id number] 2017-[place] umana Adv MANAGED t PPO MEDICARE documented as of this encounter
--- OUTSIDE RECORDS SUMMARY | 2019-11-14 12:12 | XMS REPORT | Clinical Summary ---
:1940 Author Organization [facility] Address [address] [place] [address] Care Team Providers Name Role Phone MD Stefania Primary Care Provider Allergies No Known Allergies Medications Medication Sig Dispensed Refills Start Date End Date Status mirtazapine (REMERON) Take 7.5 mg by 0 07/15/2019 Active 7.5 MG tablet mouth. loperamide (IMODIUM) 2 Take 2 mg by 0 Active mg capsule mouth. donepeziL (ARICEPT) 10 Take 10 mg by 0 07/12/2019 Active MG tablet mouth. aspirin (ECOTRIN) 81 Take 81 mg by 0 Active MG enteric coated mouth. tablet [id number] Take 1 capsule by 0 Active inerals tablet mouth. 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 Never 07/30/2019 How many drinks containing alcohol do you have on a typical Not asked day when you are drinking? How often do you have six or more drinks on one occasion? No t asked Sex Assigned at Date Recorded Female 07/29/2019 10:52 AM CDT Job Start Date Occupation Industry Not on file Not on file Not on file Travel History Travel Start Travel End No recent travel history available. Last Filed Vital Signs Vital Sign Reading Time Taken Comments Blood Pressure 127/60 07/30/2019 1:18 PM CDT Pulse 63 07/30/2019 1:18 PM CDT Temperature - - Respiratory Rate - - Oxygen Saturation - - Inhaled Oxygen Concentration - - Weight 61.2 kg (135 lb) 07/30/2019 1:18 PM CDT Height 157.5 cm (5' 2") 07/30/2019 1:18 PM CDT Body Mass Index 24.69 07/30/2019 1:18 PM CDT Plan of Treatment Health Maintenance Due Date Last Done Comments SHINGLES VACCINES (#1) 1990 65+ PNEUMOCOCCAL VACCINE (1 of 2 - PCV13) 2005 INFLUENZA VACCINE 11/26/2019 Results Not on fileafter 11/13/2018 Insurance Payer Benefit Plan / Subscriber ID Effective Dates Phone Addre ss Type Group HUMANA MEDICARE HUMANA MEDICARE xxxxxxxxx 2018-Present PPO PPO/PFFS/ERS MCR Advance Directives For more information, please contact: [phone] Type Date Recorded 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
--- OUTSIDE RECORDS SUMMARY | 2019-11-14 12:13 | XMS REPORT | Summary of Care ---
:1940 Author Organization [facility] Address [address] [place] [address] Care Team Providers Name Role Phone Stefania Primary Care Provider Reason for Visit Reason Comments Follow-up Late onset Alzheimer's disea se with behavioral disturbance Refill Request Anxiety Encounter Details Date Type Department Care Team Description 10/29/2019 [facility] Robert Quintanilla Late onset Neurology-Maria Guadalupe Beach MD Alzheimer's disease [address] [place] [address] [place], [place] disturbance ([place] [address] Dx) [id number] Allergies No Known Allergiesdocumented as of this encounter (statuses as of 11/04/2019) Medications Medication Sig Dispensed Refills Start Date [...] Active tablet by mouth at bedtime. mirtazapine Take 1 tablet 30 tablet 6 10/29/2019 Act juno (REMERON) 15 mg by mouth at tabletIndications: bedtime. Late onset Alzheimer's disease with behavioral disturbance mirtazapine 7.5 mg Take 1 tablet 30 tablet 0 09/23/2019 Discontinued tabletIndications: by mouth 0 ( Dose adjustment) Late onset daily. Alzheimer's disease with behavioral disturbance documented as of this encounter (statuses as of 11/04/2019) Active Problems Not on filedocumented as of this encounter (statuses as of 11/04/2019) Social History Tobacco Use Types Packs/Day Years Used Date Never Smoker Smokeless Tobacco: Never Used Alcohol Use Drinks/Week oz/Week Comments No Sex [...] Sign Reading Time Taken Comments Blood Pressure 92/61 10/29/2019 9:43 AM CDT Pulse 72 10/29/2019 9:43 AM CDT Temperature - - Respiratory Rate 18 10/29/2019 9:43 AM CDT Oxygen Saturation - - Inhaled Oxygen Concentration - - Weight 61.8 kg (136 lb 3.2 oz) 10/29/2019 9:43 AM CDT Height 157.5 cm (5' 2") 10/29/2019 9:43 AM CDT Body Mass Index 24.91 10/29/2019 9:43 AM CDT documented in this encounter Progress Notes Robert Quintanilla MD - 10/29/2019 9:40 AM CDT HISTORY OF PRESENT ILLNESS: Christine Alcaraz is a 79 year old female. Chief complaint: Alzheimers disease, behavioral disturbance. History: Patient is accompanied today by her . She didnt say anything although she was pleasant to me. The is stating that the patient is having more problems with agitation, last time I had seen her I had placed her on mirtazapine. He was wondering if that dosage could be increased.She also has orders for the Aricept. Past Medical History: No other active health problems. Allergies: No medications. Family History: Maternal/Paternal grandparents: No data was provided by the patient. Aunts/uncles(maternal/paternal): No data was provided by the patient. Mother/Father:No data was provided by the patient. Brothers/Sisters:No data was provided by the patient. Children/Other:No data was provided by the patient. Surgeries: Breast implants. Social history: The patient is and retired. She does not use tobacco products and very seldom will drink a little wine. Current Outpatient Medications: mirtazapine (REMERON) 15 mg tablet, Take 1 tablet by mouth at bedtime., Disp: 30 tablet, Rfl: 6 donepezil 10 mg tablet, Take 1 tablet by mouth at bedtime., Disp: 30 tablet, Rfl: 3 aspirin (ADULT LOW DOSE ASPIRIN) 81 mg EC tablet, Take 81 mg by mouth daily., Disp: , Rfl: loperamide 2 mg capsule, Take 2 mg by mouth as needed for Diarrhea., Disp: , Rfl: multivit with calcium,iron,min (WOMEN'S DAILY MULTIVITAMIN ORAL), Take 1 capsule by mouth daily., Disp: , Rfl: Social History Socioeconomic History Marital status: Spouse name: Not on file Number of children: Not on file Years of education: Not on file Highest education level: Not on file Occupational History Not on file Social Needs Financial resource strain: Not on file Food insecurity Worry: Not on file Inability: Not on file Transportation needs Medical: Not on file Non-medical: Not on file Tobacco Use Smoking status: Never Smoker Smokeless tobacco: Never Used Substance and Sexual Activity Alcohol use: No Drug use: No Sexual activity: Not on file Lifestyle Physical activity Days per week: Not on file Minutes per session: Not on file Stress: Not on file Relationships Social connections Talks on phone: Not on file Gets together: Not on file Attends gnosticism service: Not on file Active member of club or organization: Not on file Attends meetings of clubs or organizations: Not on file Relationship status: Not on file Intimate partner violence Fear of current or ex partner: Not on file Emotionally abused: Not on file Physically abused: Not on file Forced sexual activity: Not on file Other Topics Concern Not on file Social History Narrative Not on file Vital signs: BP 92/61 (BP Location: Left arm, Patient Position: Sitting, BP CUFF SIZE: Adult Medium) | Pulse 72| Resp 18 | Ht 5' 2" (1.575 m) | Wt 136 lb 3.2 oz (61.8 kg) | BMI 24.91 kg/m General findings: EOMI/VFFTC/PERRL, no facial asymmetry, no new focal weakness of arms, UE tone unchanged, no new focal weakness of legs, LE tone unchanged. The patient was cooperative, and she will follow one step commands. The patient was cooperative during the examination and she can ambulate. Her memory is pretty much gone, very concrete thinking but did not observe any word finding deficits. She was not irritable toward me. No rebound or guarding on abdominal palpation. ASSESSMENT AND RECOMMENDATIONS: ICD-10-CM ICD-9-CM 1. Late onset Alzheimer's disease with behavioral disturbance G30.1 331.0 F02.81 294.11 Impression: I did tell him that would not be an issue to increase the medication to a total of 15 mgin the evening, and then he will let me know how she does. Hopefully she will do better from that standpoint.f Creation of the note was aided by utilizing a cut/paste operation of text from a Microsoft Word template created with [employer]. The text was dictated into the template [...] onset Alzheimer's disease with beha vioral disturbance - Primary documented in this encounter Insurance Payer Benefit Plan Subscriber ID Effective Dates Phone Address Type / Group HUMANA - CHOICE CARE [id number] 2017-Presjhony umana Adv MANAGED t PPO MEDICARE documented as of this encounter
--- OUTSIDE RECORDS SUMMARY | 2019-11-14 12:13 | XMS REPORT | Summary of Care ---
:1940 Author Organization [facility] Address [address] [place] [address] Care Team Providers Name Role Phone Stefania Primary Care Provider Reason for Visit Reason Comments Follow-up Late onset Alzheimer's disea se with behavioral disturbance Refill Request Anxiety Encounter Details Date Type Department Care Team Description 10/29/2019 Office Visit [facility] Robert Quintanilla Late onset Neurology-Maria Guadalupe Beach MD Alzheimer's disease [address] [place] [address] [place], [place] disturbance ([place] [address] Dx) [phone] Allergies No Known Allergiesdocumented as [...] file Gets together: Not on file Attends holiness service: Not on file Active member of [...] from a Microsoft Word template created with [employer]. The text was dictated into the template [...] Type / Group HUMANA - CHOICE CARE [id number] 2017-Presjhony umana Adv MANAGED t PPO MEDICARE documented as of this encounter
[2019-11-14] MEDS ORDERED: NA CHLORIDE 0.9% 1,000 ML ONE (12:16)
[2019-11-14 12:18] LABS: Absolute Lymphocytes (CBC) 2.2 K/uL (0.7-4.9); Basophils % 1.1 % (0-1.3); Hematocrit 41.8 % (36.0-45.0); Lymphocytes % 30.1 % (15.3-44.8); RBC Red Blood Cell Count 4.71 M/uL (3.86-4.86)
[2019-11-14 12:34] LABS: ALT/SGPT 20 U/L (12-78); AST/SGOT 19 U/L (15-37); Albumin 3.2 g/dL (3.4-5.0); Alkaline Phosphatase 62 U/L (45-117); BUN Blood Urea Nitrogen 16 mg/dL (7-18); Bicarbonate 26 mmol/L (21-32); Bilirubin Direct < 0.1 mg/dL (0-0.2); Bilirubin Total 0.4 mg/dL (0.2-1.0); Glucose Level 129 mg/dL (74-106); Lipase 204 U/L (73-393); NT PRO-BNP 58 pg/mL (<450); Potassium 3.3 mmol/L (3.5-5.1); Protein, Total 6.7 g/dL (6.4-8.2); Sodium Level 144 mmol/L (136-145); Troponin (Emerg Dept Use Only) < 0.02 ng/mL (0.0-0.045)
--- NOTE | 2019-11-14 12:42 | RAD REPORT ---
EXAM DESCRIPTION: RAD - Chest Single View - 11/14/2019 12:25 pm CLINICAL HISTORY: ABDOMINAL DISTENTION Chest pain. COMPARISON: Chest Single View dated 04/25/2019; CHEST SINGLE VIEW dated 06/10/2010 FINDINGS: Portable technique limits examination quality. The lungs are mildly emphysematous but grossly clear. Small calcified granuloma left mid lung. The he art is normal in size. No displaced fractures. IMPRESSION: No acute intrathoracic process suspected.
--- NOTE | 2019-11-14 14:24 | ER ---
Nurse's Notes [facility] Name: Christine Alcaraz Age: 79 yrs Sex: Female : 1940 Arrival Date: 11/14/2019 Time: 11:02 Bed 18 Private MD: Freeman Aguiar V Diagnosis: Vomiting;Alzheimer's disease;Dementia in other diseases classified elsewhere Presentation: 11/13 11:02 Chief complaint: EMS states: Pt presents via EMS with reports of n/v, hx of Alzheimers, jr10 poor historian. Coronavirus screen: Client denies travel out of the [place] in the last 14 days. At this time, the client does not indicate any symptoms associated with coronavirus-19. Ebola Screen: No symptoms or risks identified at this time. Initial Sepsis Screen: Does the patient meet any 2 criteria? No. Patient's initial sepsis screen is negative. Does the patient have a suspected source of infection? No. Patient's initial sepsis screen is negative. Risk Assessment: Do you want to hurt yourself or someone else? Patient reports no desire to harm self or others. Onset of symptoms was November 14, 2019. 11:02 Method Of Arrival: EMS jr10 11:02 Acuity: AYLIN 3 jr10 11:02 Care prior to arrival: Medication(s) given: zofran 4 mg, IV initiated. 20 GA, in the jr10 right forearm. Historical: - Allergies: 11:04 No Known Allergies; jr10 - Home Meds: 11:04 donepezil Oral [Active]; jr10 - PMHx: 11:04 Alzheimers; jr10 - Immunization history:: Adult Immunizations unknown. - Social history:: Smoking status: unknown. Screenin:02 Abuse screen: Denies threats or abuse. Denies injuries from another. Nutritional jr10 screening: No deficits noted. Tuberculosis screening: No symptoms or risk factors identified. Fall Risk Fall in past 12 months (25 points). Secondary diagnosis (15 points) Alzheimer's, impaired mobility, IV access (20 points). Ambulatory Aid- Crutches/Cane/Walker (15 pts). Gait- Weak (10 pts.). Mental Status- Overestimates/Forgets Limitations (15 pts.). Assessment: 11:30 General: Appears uncomfortable, Behavior is calm, cooperative. Pain: Denies pain. jr10 Neuro: Level of Consciousness is awake, alert, obeys commands, Oriented to person, pt has hx of alzheimers. Cardiovascular: No deficits noted. Rhythm is sinus rhythm. Respiratory: No deficits noted. Airway is patent Respiratory effort is even, unlabored, Respiratory pattern is regular, symmetrical. GI: Abdomen is non-distended, Bowel sounds present X 4 quads. Reports nausea, vomiting, since this morning active vomiting noted upon arrival. : No deficits noted. No signs and/or symptoms were reported regarding the genitourinary system. EENT: No deficits noted. No signs and/or symptoms were reported regarding the EENT system. Derm: No deficits noted. No signs and/or symptoms reported regarding the dermatologic system. Musculoskeletal: No deficits noted. No signs and/or symptoms reported regarding the musculoskeletal system. 12:30 Reassessment: Patient and/or family updated on plan of care and expected duration. Pain jr10 level reassessed. Patient is alert, oriented x 3, equal unlabored respirations, skin warm/dry/pink. 13:30 Reassessment: Reassessment: Patient and/or family updated on plan of care and expected jr10 duration. Pain level reassessed. Patient is alert, oriented x 3, equal unlabored respirations, skin warm/dry/pink. Patient states symptoms have improved. 14:32 Reassessment: pt getting increasingly agitated, getting out of bed, walking into jr10 hallway yelling. Pt yelling "I don't want to be here! Nobody is helping me! I don't even know why I'm here!" When telling pt that her will be coming back to pick her up pt yells "I don't have a !! I am not !" Dr Lopez notified of pt mental status change. called to [facility]/receiving associate patient after d/c. Vital Signs: 11:02 BP 114 / 69; Pulse 69; Resp 17; Temp 97.8; Pulse Ox 96% on R/A; Pain 0/10; jr10 11:27 BP 116 / 63; Pulse 66; Resp 18; Pulse Ox 96% on R/A; jr10 13:25 BP 120 / 71; Pulse 70; Resp 18; Pulse Ox 97% on R/A; jr10 14:00 BP 111 / 77; Pulse 95; Resp 18; Pulse Ox 98% on R/A; Pain 0/10; jr10 ED Course: 11:02 Patient arrived in ED. jr10 11:02 Patient has correct armband on for positive identification. Placed in gown. Bed in low jr10 position. Call light in reach. Side rails up X2. adjunct psychology faculty member on. Pulse ox on. NIBP on. 11:04 Triage completed. jr10 11:04 Arm band placed on right wrist. jr10 11:08 Sebastian Lopez MD is Attending Physician. [facility] 11:12 Freeman Aguiar MD is Private Physician. 11:26 Kyra Wilde, CINTIA is Primary Nurse. jr10 11:27 No provider procedures requiring assistance completed. Maintain EMS IV. Dressing jr10 intact. Good blood return noted. Site clean \\T\\ dry. Gauge \\T\\ site: 20G right FA. Flushed. 12:25 XRAY Chest (1 view) In Process Unspecified. EDMS 14:20 IV discontinued, intact, bleeding controlled, Pressure dressing applied, pt noted to be jr10 pulling at IV, IV noted to be half way out at reassessment, site infiltrated, mild swelling noted, pressure dsg applied; fluids d/c, Dr Lopez notified and aware. 14:23 Freeman Aguiar MD is Referral Physician. [facility] Administered Medications: Discontinued: NS 0.9% 1000 ml IV at 125 ml/hr continuous 11:54 Drug: Zofran (Ondansetron) 4 mg Route: IVP; Site: right forearm; jr10 13:01 Follow up: Response: No adverse reaction jr10 12:12 Drug: NS 0.9% 1000 ml Route: IV; Rate: 125 ml/hr; Site: right forearm; jr10 14:46 Follow up: Response: No adverse reaction jr10 14:46 Not Given (Patient Refused; d/c orders placed): NS 0.9% 500 ml IV at bolus once jr10 14:46 Not Given (Patient Refused; d/c orders placed): NS 0.9% with KCl 20 mEq/L 1000 ml IV at jr10 125 ml/hr continuous Outcome: 14:24 Discharge ordered by . [facility] 14:47 Discharged to home ambulatory, with family, jr10 14:47 Condition: stable 14:47 Discharge instructions given to significant other, Instructed on discharge instructions, follow up and referral plans. Demonstrated understanding of instructions, follow-up care, medications, Prescriptions given X 1. 14:48 Patient left the ED. jr10 Signatures: Dispatcher [employer] EDSebastian Acosta MD MD cha Smirch, Shelby, RN RN Kyar Jackman RN RN jr10 Corrections: (The following items were deleted from the chart) 11:26 11:04 PMHx: CVA; [place] jr10
--- NOTE | 2019-11-14 14:25 | EDPHYS ---
Physician Documentation [facility] Name: Christine Alcaraz Age: 79 yrs Sex: Female : 1940 Arrival Date: 11/14/2019 Time: 11:02 Bed 18 Private MD: Freeman Aguiar V ED Physician Sebastian Lopez HPI: 11/13 11:45 This 79 yrs old Female presents to ER via EMS with complaints of misa Nausea/Vomiting. 11:45 The patient presents to the emergency department with nausea, vomiting, that is misa continuous. Onset: The symptoms/episode began/occurred this morning. Possible causes: unknown. The symptoms are aggravated by. Associated signs and symptoms: The patient has no apparent associated signs or symptoms. Severity of symptoms: At their worst the symptoms were mild moderate in the emergency department the symptoms are unchanged. The patient has experienced similar episodes in the past, several times. Historical: - Allergies: 11:04 No Known Allergies; jr10 - Home Meds: 11:04 donepezil Oral [Active]; jr10 - PMHx: 11:04 Alzheimers; jr10 - Immunization history:: Adult Immunizations unknown. - Social history:: Smoking status: unknown. ROS: 11:45 Constitutional: Negative for fever, chills, and weight loss, Eyes: Negative for injury, misa pain, redness, and discharge, ENT: Negative for injury, pain, and discharge, Neck: Negative for injury, pain, and swelling, Cardiovascular: Negative for chest pain, palpitations, and edema, Respiratory: Negative for shortness of breath, cough, wheezing, and pleuritic chest pain, Back: Negative for injury and pain, : Negative for injury, bleeding, discharge, and swelling, MS/Extremity: Negative for injury and deformity, Skin: Negative for injury, rash, and discoloration, Psych: Negative for depression, anxiety, suicide ideation, homicidal ideation, and hallucinations, Allergy/Immunology: Negative for hives, rash, and allergies, Endocrine: Negative for neck swelling, polydipsia, polyuria, polyphagia, and marked weight changes, Hematologic/Lymphatic: Negative for swollen nodes, abnormal bleeding, and unusual bruising. 11:45 Abdomen/GI: Positive for nausea and vomiting. 11:45 Neuro: Positive for syncope, near syncope. Exam: 11:45 Constitutional: This is a well developed, well nourished patient who is awake, alert, misa and in no acute distress. Head/Face: Normocephalic, atraumatic. Eyes: Pupils equal round and reactive to light, extra-ocular motions intact. Lids and lashes normal. Conjunctiva and sclera are non-icteric and not injected. Cornea within normal limits. Periorbital areas with no swelling, redness, or edema. ENT: Nares patent. No nasal discharge, no septal abnormalities noted. Tympanic membranes are normal and external auditory canals are clear. Oropharynx with no redness, swelling, or masses, exudates, or evidence of obstruction, uvula midline. Mucous membranes moist. Neck: Trachea midline, no thyromegaly or masses palpated, and no cervical lymphadenopathy. Supple, full range of motion without nuchal rigidity, or vertebral point tenderness. No Meningismus. Chest/axilla: Normal chest wall appearance and motion. Nontender with no deformity. No lesions are appreciated. Cardiovascular: Regular rate and rhythm with a normal S1 and S2. No gallops, murmurs, or rubs. Normal PMI, no JVD. No pulse deficits. Respiratory: Lungs have equal breath sounds bilaterally, clear to auscultation and percussion. No rales, rhonchi or wheezes noted. No increased work of breathing, no retractions or nasal flaring. Abdomen/GI: Soft, non-tender, with normal bowel sounds. No distension or tympany. No guarding or rebound. No evidence of tenderness throughout. Back: No spinal tenderness. No costovertebral tenderness. Full range of motion. Skin: Warm, dry with normal turgor. Normal color with no rashes, no lesions, and no evidence of cellulitis. MS/ Extremity: Pulses equal, no cyanosis. Neurovascular intact. Full, normal range of motion. Neuro: Awake and alert, GCS 15, oriented to person, place, time, and situation. Cranial nerves II-XII grossly intact. Motor strength 5/5 in all extremities. Sensory grossly intact. Cerebellar exam normal. Normal gait. Psych: Awake, alert, with orientation to person, place and time. Behavior, mood, and affect are within normal limits. 11:45 Abdomen/GI: Inspection: abdomen appears normal, Bowel sounds: normal, Palpation: Liver: no appreciated palpable abnormalities, Hernia: not appreciated. 11:49 ECG was reviewed by the Attending Physician. [facility] Vital Signs: 11:02 BP 114 / 69; Pulse 69; Resp 17; Temp 97.8; Pulse Ox 96% on R/A; Pain 0/10; jr10 11:27 BP 116 / 63; Pulse 66; Resp 18; Pulse Ox 96% on R/A; jr10 13:25 BP 120 / 71; Pulse 70; Resp 18; Pulse Ox 97% on R/A; jr10 14:00 BP 111 / 77; Pulse 95; Resp 18; Pulse Ox 98% on R/A; Pain 0/10; jr10 MDM: 11:08 Patient medically screened. [facility] 11:49 Data reviewed: vital signs, nurses notes, old medical records, lab test result(s), EKG, [facility] radiologic studies, plain films. 11/13 11:48 Order name: Basic Metabolic Panel; Complete Time: 13:30 [facility] 11/13 11:48 Order name: CBC with Diff; Complete Time: 13:30 [facility] 11/13 11:48 Order name: LFT's; Complete Time: 13:30 [facility] 11/13 11:48 Order name: Magnesium; Complete Time: 13:30 [facility] 11/13 11:48 Order name: NT PRO-BNP; Complete Time: 13:30 [facility] 11/13 11:48 Order name: Troponin (emerg Dept Use Only); Complete Time: 13:30 [facility] 11/13 11:48 Order name: XRAY Chest (1 view); Complete Time: 13:30 [facility] 11/13 11:48 Order name: EKG; Complete Time: 11:49 [facility] 11/13 11:48 Order name: Lipase; Complete Time: 13:30 [facility] 11/13 11:48 Order name: Cardiac monitoring; Complete Time: 11:54 [facility] 11/13 11:48 Order name: EKG - Nurse/Tech; Complete Time: 11:54 [facility] 11/13 11:48 Order name: IV Saline Lock; Complete Time: 11:54 [facility] 11/13 11:48 Order name: Labs collected and sent; Complete Time: 11:54 [facility] 11/13 11:48 Order name: O2 Per Protocol; Complete Time: 11:54 [facility] 11/13 11:48 Order name: O2 Sat Monitoring; Complete Time: 11:54 [facility] EC:49 Rate is 64 beats/min. Rhythm is regular. QRS [place] is Normal. MS interval is normal. QRS misa interval is normal. QT interval is normal. No Q waves. T waves are Normal. No ST changes noted. Clinical impression: NSR w/ Non-specific ST/T Changes and No evidence of ischemia. Reviewed by me. Administered Medications: Discontinued: NS 0.9% 1000 ml IV at 125 ml/hr continuous 11:54 Drug: Zofran (Ondansetron) 4 mg Route: IVP; Site: right forearm; jr10 13:01 Follow up: Response: No adverse reaction jr10 12:12 Drug: NS 0.9% 1000 ml Route: IV; Rate: 125 ml/hr; Site: right forearm; jr10 14:46 Follow up: Response: No adverse reaction jr10 14:46 Not Given (Patient Refused; d/c orders placed): NS 0.9% 500 ml IV at bolus once jr10 14:46 Not Given (Patient Refused; d/c orders placed): NS 0.9% with KCl 20 mEq/L 1000 ml IV at jr10 125 ml/hr continuous Disposition: 11/14/19 14:24 Discharged to Home. Impression: Vomiting, Alzheimer's disease, Dementia in other diseases classified elsewhere. - Condition is Stable. - Discharge Instructions: Dementia, Nausea and Vomiting, Adult, Nausea and Vomiting, Adult, Ruml-rv-Ftzv, Alzheimer Disease Caregiver Guide, Mpvc-mb-Dyqu, Dementia, Baut-hb-Dmjs. - Prescriptions for Zofran 4 mg Oral Tablet - take 1 tablet by ORAL route every 12 hours As needed; 14 tablet. - Medication Reconciliation Form, Thank You Letter, Antibiotic Education, Prescription Opioid Use form. - Follow up: Freeman Aguiar MD; When: 1 - 2 days; Reason: Recheck today's complaints, Continuance of care, Re-evaluation by your physician. - Problem is new. - Symptoms have improved. Signatures: Dispatcher [employer] EDSebastian Acosta MD MD cha Rivera, Jessica RN RN jr10 Corrections: (The following items were deleted from the chart) 11:26 11:04 PMHx: CVA; [place] jr10 14:47 11:48 Urine Dipstick-Ancillary ordered. misa bartholomew 14:48 14:24 11/14/2019 14:24 Discharged to Home. Impression: Vomiting; Alzheimer's disease; jr10 Dementia in other diseases classified elsewhere. Condition is Stable. Forms are Medication Reconciliation Form, Thank You Letter, Antibiotic Education, Prescription Opioid Use. Follow up: Freeman Aguiar; When: 1 - 2 days; Reason: Recheck today's complaints, Continuance of care, Re-evaluation by your physician. Problem is new. Symptoms have improved. misa
[2019-11-14 14:55] VITALS: TEMP 97.8
[2019-11-14 14:58] VITALS: BP 111/77; O2SAT 98
== END 2019-11-14 14:48 | disposition home or self-care (01) ==
LOC: ER 10:56
DX: R11.2 Nausea with vomiting, unspecified (principal); G30.9 Alzheimer's disease, unspecified; F02.80 Dementia in other diseases classified elsewhere, unspecified severity, without behavioral disturbance, psychotic disturbance, mood disturbance, and anxiety
CPT/HCPCS: 93005; 85025; 80048; 36415; 83735; 80076; 84484; 83690; 83880; 71045; 96374; 99284; J7030; J2405

== ENCOUNTER 2020-04-02 08:55 | Emergency (ER) | payer OTHER ==
--- OUTSIDE RECORDS SUMMARY | 2020-04-02 08:59 | XMS REPORT | Clinical Summary ---
:1940 Author Organization [facility] Address [address] [place] [address] Care Team Providers Name Role Phone MD Stefania Primary Care Provider Allergies No Known Active Allergies Medications Medication Sig Dispensed Refills Start Date End Date Status mirtazapine (REMERON) Take 7.5 mg by 0 07/15/2019 Active 7.5 MG tablet mouth. loperamide (IMODIUM) 2 Take 2 mg by 0 Active mg capsule mouth. donepeziL (ARICEPT) 10 Take 10 mg by 0 07/12/2019 Active MG tablet mouth. aspirin (ECOTRIN) 81 Take 81 mg by 0 Active MG enteric coated mouth. tablet tjkzybzrptaw-Su-dzrz-m Take 1 capsule by 0 Active inerals tablet mouth. 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 Abdominal pain 07/30/2019 Encounters Date Type Specialty Care Team Description 07/30/2019 Office Visit Cardiology Carmelo Coles MD Celiac a rtery stenosis (HCC) (Primary Dx); Abdominal pain, unspecified abdominal location 07/30/2019 Travel 06/14/2019 Travel 06/13/2019 Telephone Cardiology Shankar Galvin MA Appointment after 04/02/2019 Surgical History Surgery Date Site/Laterality Comments AUGMENTATION, BREAST, WITH PROSTHETIC IMPLANT Medical History Medical History Date Comments Alzheimer disease (HCC) Colitis Social History Tobacco Use Types Packs/Day Years [...] Date Recorded Female 07/29/2019 10:52 AM CDT Last Filed Vital Signs Vital Sign Reading [...] Health Maintenance Due Date Last Done Comments COVID-19 VACCINE (#1) 1956 SHINGLES VACCINES (#1) 1990 65+ PNEUMOCOCCAL VACCINE (1 of 1 - PPSV23) 2005 INFLUENZA VACCINE 10/26/2019 Results Not on fileafter 04/02/2019 Insurance Payer Benefit Plan / Subscriber ID Effective Dates Phone Addre ss Type Group HUMANA MEDICARE HUMANA MEDICARE [id number] 2018-Present PPO PPO/PFFS/ERS [facility] Advance Directives For more information, please contact: [phone] Type Date Recorded Patient 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
--- OUTSIDE RECORDS SUMMARY | 2020-04-02 08:59 | XMS REPORT | Continuity of Care Document ---
:1940 Author Organization [facility] t Address [address] [place] [address] Care Team Providers Name Role Phone Stefania RUSSELL Primary Care Physician Dwight RUSSELL, Gene Attending Clinician Sanket RUSSELL RFern Attending Clinician Glenis SALEH Attending Clinician Unavailable Payers Payer Name Policy Type Policy Effective Date Expiration Date Sour ce Number HUMANA [id number] 2018 [place] MEDICAREHUMANA 00:00:00 [facility] MEDICARE PPO/PFFS/ERS [id number] 2018 -PresentPPO Problems Condition Condition Condition Status Onset Resolution Last Treating Co mments Source Name Details Category Date Date Treatment Clinician Date Celiac Celiac Disease Active [place] artery artery 5-05 [facility] stenosis stenosis 00:00: st 00 Abdominal Abdominal Disease Active 2019- Maria Del Rosario ston pain pain 5-05 [facility] 00:00: st 00 Allergies, Adverse Reactions, Alerts This patient has no known allergies or adverse reactions. Social History Social Habit Start Date Stop Date Quantity Comments Source History [facility] Meth odist Alcohol Std Drinks History [facility] od[facility] Alcohol Binge Sex Assigned At F [place] M [facility]ist Alcohol intake 2019-07-30 2019-07-30 Ex-drinker [facility] thodist 00:00:00 00:00:00 (finding) History [facility] 2019-07-30 2019-07-30 [address] [place] Meth odist Alcohol Frequency 00:00:00 00:00:00 Smoking Status Start Date Stop Date Source Never smoker [place] [facility] t Medications Ordered Filled Start Stop Current Ordering Indication Dosage Frequency Signature Comments Components Source Medication Medication Date Date Medication? Clinician (SIG) Name Name loperamide 2019-0 Yes 2mg Take 2 mg [place] (IMODIUM) 2 5-05 by mouth. Met hodi mg capsule 13:20: st 50 aspirin 2020-0 Yes 81mg Take 81 mg [place] (ECOTRIN) 5-05 by mouth. Metho di 81 MG 13:20: st enteric 50 coated tablet multivitami 2019-0 Yes 1{capsu Take 1 [place] n-Ca-iron-m 5-05 le} capsule by Nh thdarrell inerals 13:20: mouth. st tablet 50 mirtazapine 2019-0 Yes 7.5mg Take 7.5 [place] (REMERON) 4-20 mg by Method[facility] 7.5 MG 00:00: mouth. st tablet 00 donepeziL 0 Yes 10mg Take 10 mg [place] (ARICEPT) 4-17 by mouth. Metho di 10 MG 00:00: st tablet 00 Vital Signs Vital Name Observation Time Observation Value Comments Source Systolic blood 2019-07-30 13:18:00 127 mm[Hg] Maria Ato n [facility] pressure Diastolic blood 2019-07-30 13:18:00 60 mm[Hg] Daphne on [facility] pressure Heart rate 2019-07-30 13:18:00 63 /min Han Crawford Body height 2019-07-30 13:18:00 157.5 cm Han Crawford Body weight 2019-07-30 13:18:00 61.236 kg Han Crawford BMI 2019-07-30 13:18:00 24.69 kg/m2 Han Crawford Procedures This patient has no known procedures. Plan of Care Planned Activity Planned Date Details Comments Source Future Scheduled 2019-10-26 INFLUENZA VACCINE Maria Ato n [facility] Test 00:00:00 [code = INFLUENZA VACCINE] Future Scheduled 2005 65+ PNEUMOCOCCAL Han [facility] Test 00:00:00 VACCINE (1 of 1 - PPSV23) [code = 65+ PNEUMOCOCCAL VACCINE (1 of 1 - PPSV23)] Future Scheduled 1990 SHINGLES VACCINES (#1) [place] [facility] Test 00:00:00 [code = SHINGLES VACCINES (#1)] Future Scheduled 1956 COVID-19 VACCINE (#1) [place] [facility] Test 00:00:00 [code = COVID-19 VACCINE (#1)] Encounters Start End Encounter Admission Attending Care Care Encounter Source Date/Time Date/Time Type Type Clinicians Facility Department ID 2019-10-29 2019-10-29 Office SHANNON Quintanilla [id number] 09:41:49 10:35:49 Visit Robert Lerma [id number] Servando [id number] Carole [id number] [facility] 2019-07-30 2019-07-30 Outpatient [facility] [id number] [place] 00:00:00 00:00:[address] ROS[address] Results This patient has no known results.
--- NOTE | 2020-04-02 09:53 | RAD REPORT ---
EXAM DESCRIPTION: RAD - Chest Single View - 04/02/2020 9:41 am CLINICAL HISTORY: FEVER Chest pain. COMPARISON: Chest Single View dated 11/14/2019; Chest Single View dated 04/25/2019; CHEST SINGLE VIEW dated 06/10/2010 FINDINGS: Portable technique limits examination quality. The lungs are grossly clear. Tiny benign left lung calcified granuloma. The heart is normal in size. No displaced fractures. IMPRESSION: No acute intrathoracic process suspected.
[2020-04-02 09:54] LABS: Basophils % 0.7 % (0-1.3); Hematocrit 41.7 % (36.0-45.0); Lymphocytes % 10.7 % (15.3-44.8); MPV 8.1 fL (7.6-11.3); RBC Red Blood Cell Count 4.64 M/uL (3.86-4.86)
[2020-04-02 09:58] LABS: Protime INR 0.97
[2020-04-02 10:22] LABS: ALT/SGPT 20 U/L (12-78); AST/SGOT 21 U/L (15-37); Albumin 3.2 g/dL (3.4-5.0); Alkaline Phosphatase 72 U/L (45-117); BUN Blood Urea Nitrogen 15 mg/dL (7-18); Bicarbonate 24 mmol/L (21-32); Bilirubin Direct < 0.1 mg/dL (0-0.2); Bilirubin Total 0.4 mg/dL (0.2-1.0); Creatine Phosphokinase 95 U/L (26-192); Glucose Level 112 mg/dL (74-106); Lipase 90 U/L (73-393); Potassium 3.3 mmol/L (3.5-5.1); Sodium Level 143 mmol/L (136-145); Troponin (Emerg Dept Use Only) < 0.02 ng/mL (0.0-0.045)
[2020-04-02] MEDS ORDERED: NA CHLORIDE 0.9% 1,000 ML ONE (10:50)
[2020-04-02 10:51] LABS: Urine Bacteria <20 /HPF (<20); Urine Mucus LIGHT /HPF (NONE SEEN)
[2020-04-02] MEDS ORDERED: KCL 20 MEQ/100 mL IVPB 20 MEQ/100 ML BAG IV ONE (10:51)
[2020-04-02 10:54] LABS: SARS-COV-2 RT PCR NEGATIVE (NEGATIVE)
[2020-04-02 11:12] LABS: Urine Blood 1+ (NEG); Urine Glucose NEGATIVE (NEG); Urine Protein NEGATIVE (NEG); Urine Specific Gravity 1.025 (1.005-1.030)
--- NOTE | 2020-04-02 13:04 | EDPHYS ---
Physician Documentation [facility] Name: Christine Alcaraz Age: 80 yrs Sex: Female : 1940 Arrival Date: 04/02/2020 Time: 08:56 Bed 3 Private MD: ED Physician Isaiah Tim HPI: 04/02 10:22 This 80 yrs old Female presents to ER via EMS with complaints of Tremor, jr8 Altered Mental Status. 10:22 Onset: The symptoms/episode began/occurred acutely, today. Associated signs and jr8 symptoms: Pertinent positives: fever. Modifying factors: The patient symptoms are alleviated by nothing, the patient symptoms are aggravated by nothing. The patient has not experienced similar symptoms in the past. The patient has not recently seen a physician. stated that she has increased tremor and seemed more fatigue. Fever noted upon transport this morning. Had been complaining of pain everywhere . Historical: - Allergies: 09:02 No Known Allergies; ss - PMHx: 09:02 Alzheimers; Dementia; ss - Immunization history:: Adult Immunizations up to date. - Social history:: Smoking status: Patient denies any tobacco usage or history of. ROS: 10:22 Unable to obtain ROS due to altered mental status, baseline dementia. jr8 Exam: 10:22 Eyes: Pupils equal round and reactive to light, extra-ocular motions intact. Lids and jr8 lashes normal. Conjunctiva and sclera are non-icteric and not injected. Cornea within normal limits. Periorbital areas with no swelling, redness, or edema. ENT: Nares patent. No nasal discharge, no septal abnormalities noted. Tympanic membranes are normal and external auditory canals are clear. Oropharynx with no redness, swelling, or masses, exudates, or evidence of obstruction, uvula midline. Mucous membranes moist. Neck: Trachea midline, no thyromegaly or masses palpated, and no cervical lymphadenopathy. Supple, full range of motion without nuchal rigidity, or vertebral point tenderness. No Meningismus. Cardiovascular: Regular rate and rhythm with a normal S1 and S2. No gallops, murmurs, or rubs. Normal PMI, no JVD. No pulse deficits. Respiratory: Lungs have equal breath sounds bilaterally, clear to auscultation and percussion. No rales, rhonchi or wheezes noted. No increased work of breathing, no retractions or nasal flaring. Skin: Warm, dry with normal turgor. Normal color with no rashes, no lesions, and no evidence of cellulitis. MS/ Extremity: Pulses equal, no cyanosis. Neurovascular intact. Full, normal range of motion. 10:22 Neuro: Orientation: Not oriented to person, place, time, situation, Mentation: confused, Motor: moves all fours, Sensation: no obvious gross deficits, seizure activity, is not displayed by the patient, Abnormal movements: resting tremor, is located in the right arm and left arm. 10:22 ECG was reviewed by the Attending Physician. jr8 Vital Signs: 09:01 BP 101 / 53; Pulse 72; Resp 24; Temp 99.0(A); Pulse Ox 99% on R/A; Weight 61.23 kg; ss 10:38 BP 101 / 61; Pulse 82; Resp 19; Pulse Ox 98% on R/A; ss 12:03 BP 98 / 77; Pulse 63; Resp 18; Pulse Ox 100% on R/A; ss MDM: 09:11 Patient medically screened. jr8 13:02 Data reviewed: vital signs, nurses notes, lab test result(s), EKG, radiologic studies, jr8 plain films. Data interpreted: Pulse oximetry: on room air is 100 %. Interpretation: normal. Counseling: I had a detailed discussion with the patient and/or guardian regarding: the historical points, exam findings, and any diagnostic results supporting the discharge/admit diagnosis, lab results, radiology results, the need for outpatient follow up, a family practitioner, to return to the emergency department if symptoms worsen or persist or if there are any questions or concerns that arise at home. ED course: Patient resting comfortably in exam room. No fever. No increased WBC. No signs for UTI, pneumonia, or any other viral or bacterial infection present based on labs and exam. Clinically was dehydrated and showed in lactate. Potassium and fluids given. Will d/c home to f/u with PCP. knows to come back with her if worse . 04/02 09:17 Order name: Basic Metabolic Panel 8 04/02 09:17 Order name: Blood Culture Adult (2) 8 04/02 09:17 Order name: CBC with Diff jr8 04/02 09:17 Order name: CPK jr8 04/02 09:17 Order name: Lactate 8 04/02 09:17 Order name: LFT's 04/02 09:17 Order name: Lipase 8 04/02 09:17 Order name: Procalcitonin 8 04/02 09:17 Order name: Protime (+inr) [facility] 04/02 09:17 Order name: Ptt, Activated 04/02 09:17 Order name: Troponin (emerg Dept Use Only); Complete Time: 10:26 jr8 04/02 09:17 Order name: Urine Microscopic Only; Complete Time: 10:57 jr8 04/02 09:18 Order name: Basic Metabolic Panel; Complete Time: 10:26 EDMS 04/02 09:18 Order name: Blood Culture EDMS 04/02 09:17 Order name: Chest Single View XRAY; Complete Time: 10:01 jr8 04/02 09:18 Order name: CBC with Automated Diff; Complete Time: 10:01 EDMS 04/02 09:18 Order name: Creatine Phosphokinase; Complete Time: 10:26 EDMS 04/02 09:18 Order name: Lactate; Complete Time: 10:26 EDMS 04/02 09:18 Order name: Liver (Hepatic) Function; Complete Time: 10:26 EDMS 04/02 09:18 Order name: Lipase; Complete Time: 10:26 EDMS 04/02 09:18 Order name: Procalcitonin; Complete Time: 10:57 EDMS 04/02 09:18 Order name: Protime (+INR); Complete Time: 10:26 EDMS 04/02 09:18 Order name: PTT, Activated Partial Thromb; Complete Time: 10:26 EDMS 04/02 10:07 Order name: Urine Dipstick--Ancillary (enter results); Complete Time: 11:25 kj1 04/02 10:54 Order name: COVID-19/FLU A+B; Complete Time: 10:57 EDMS 04/02 14:03 Order name: Lactate Sepsis 2 HR Follow-up; Complete Time: 14:09 EDMS 04/02 09:17 Order name: Cath; Complete Time: 10:02 jr8 04/02 09:17 Order name: Accucheck; Complete Time: 10:40 jr8 04/02 09:17 Order name: Cardiac monitoring; Complete Time: 10:02 jr8 01/07 09:17 Order name: EKG - Nurse/Tech; Complete Time: 10:04/02 09:17 Order name: IV Saline Lock - Large Bore; Complete Time: :04/02 09:17 Order name: Labs collected and sent; Complete Time: 10:04/02 09:17 Order name: O2 Per Protocol; Complete Time: 10:04/02 09:17 Order name: O2 Sat Monitoring; Complete Time: 10:04/02 09:17 Order name: Urine Dipstick-Ancillary (obtain specimen); Complete Time: : EC:22 Rate is 66 beats/min. Rhythm is regular, Normal Sinus Rhythm. QRS [place] is Normal. IN jr8 interval is prolonged at 202 msec. QRS interval is normal at 64 msec. QT interval is normal at 423 msec. No Q waves. T waves are Normal. No ST changes noted. Clinical impression: Normal ECG. Interpreted by me. Reviewed by me. Administered Medications: 10:48 Drug: NS 0.9% 1000 ml Route: IV; Rate: 1000 ml; Site: right antecubital; ss 10:48 Drug: Potassium Chloride 20 mEq Route: IV; Rate: calculated rate; Site: right ss antecubital; Disposition: 15:59 Co-signature as Attending Physician, Isaiah Tim MD I agree with the assessment and kdr plan of care. Disposition: 04/02/20 13:04 Discharged to Home. Impression: Dehydration, Hypokalemia. - Condition is Stable. - Discharge Instructions: Dehydration, Elderly, Hypokalemia. - Medication Reconciliation Form, Thank You Letter, Antibiotic Education, Prescription Opioid Use form. - Follow up: Private Physician; When: 2 - 3 days; Reason: Recheck today's complaints, Continuance of care, Re-evaluation by your physician. - Problem is new. - Symptoms have improved. Signatures: Dispatcher [employer] EDWV Isaiah Tim MD MD [facility] Patricia Greco RN RN Figueroa Do PA PA jr8 Corrections: (The following items were deleted from the chart) 10:12 09:43 CORONAVIRUS+MR.LAB.BRZ ordered. EDWV EDWV 10:13 09:43 Influenza Screen (A \T\ B)+BA.LAB.BRZ ordered. EDWV EDMS 14:54 13:04 04/02/2020 13:04 Discharged to Home. Impression: Dehydration; Hypokalemia. ss Condition is Stable. Forms are Medication Reconciliation Form, Thank You Letter, Antibiotic Education, Prescription Opioid Use. Follow up: Private Physician; When: 2 - 3 days; Reason: Recheck today's complaints, Continuance of care, Re-evaluation by your physician. Problem is new. Symptoms have improved. jr8
--- NOTE | 2020-04-02 13:04 | ER ---
Nurse's Notes [facility] Name: Christine Alcaraz Age: 80 yrs Sex: Female : 1940 Arrival Date: 04/02/2020 Time: 08:56 Bed 3 Private MD: Diagnosis: Dehydration;Hypokalemia Presentation: 04/02 08:57 Chief complaint: EMS states: Pt from home, hx of Alzheimer's/dementia and has tremors ph at baseline, was concerned that her tremors had worsened and that she was more altered than normal, unknown what pt's baseline mental status is, pt repeating " I hurt, I hurt, I hurt" upon arrival, gesturing to lower abdomen, T 100.0, HR 76, BP 117/52. Coronavirus screen: Client denies travel out of the [place] in the last 14 days. At this time, the client does not indicate any symptoms associated with coronavirus-19. Ebola Screen: No symptoms or risks identified at this time. Initial Sepsis Screen: Does the patient meet any 2 criteria? No. Patient's initial sepsis screen is negative. Does the patient have a suspected source of infection? Yes: Dysuria/Frequency/Urgency/UTI. Risk Assessment: Do you want to hurt yourself or someone else? Patient reports no desire to harm self or others. Onset of symptoms was April 02, 2020. 08:57 Method Of Arrival: EMS: [facility] ph 08:57 Acuity: AYLIN 3 ph Historical: - Allergies: 09:02 No Known Allergies; ss - PMHx: 09:02 Alzheimers; Dementia; ss - Immunization history:: Adult Immunizations up to date. - Social history:: Smoking status: Patient denies any tobacco usage or history of. Screenin:02 Abuse screen: Denies threats or abuse. Denies injuries from another. Nutritional ph screening: No deficits noted. Tuberculosis screening: No symptoms or risk factors identified. Fall Risk None identified. Assessment: 09:00 General: Appears uncomfortable, Behavior is agitated, anxious, restless, ss reported to EMS that patient seems to be having more aggressive tremors since they woke up this morning. . Pain: Unable to use pain scale. Does not appear to understand pain scale. Neuro: Level of Consciousness is awake, alert, Oriented to none. Cardiovascular: Pulses are palpable in right radial artery and left radial artery. Respiratory: Airway is patent Trachea midline Respiratory effort is even, Respiratory pattern is regular, symmetrical. GI: Abdomen is flat, non-distended, Bowel sounds present X 4 quads. : No signs and/or symptoms were reported regarding the genitourinary system. EENT: Oral mucosa is dry. Throat is clear. Derm: Skin is fragile, is thin, Skin is dry, Skin temperature is warm. Musculoskeletal: Circulation, motion, and sensation intact. Range of motion: intact in all extremities, Swelling absent. 10:01 Reassessment: Pt cleaned of bowel and urinary incontinence while obtaining urine ss specimen. remains at bedside. Pt given warm blanket for comfort. Lights dimmed. Awaiting results. 10:23 Reassessment: Point of Contact, Sharif Alcaraz: [phone]. ss 10:29 Reassessment: Pt is resting at this time. Eyes closed. Respirations remain even and ss unlabored. Call light within reach. 12:30 Reassessment: Awaiting liter bolus to finish infusing prior to obtaining second lactate.ss 13:37 Reassessment: second lactate drawn and sent to lab. Awaiting results prior to discharge.ss 14:00 Reassessment: Patient appears in no apparent distress at this time. cleaned of bowel ss and urinary incontinence. Vital Signs: 09:01 BP 101 / 53; Pulse 72; Resp 24; Temp 99.0(A); Pulse Ox 99% on R/A; Weight 61.23 kg; ss 10:38 BP 101 / 61; Pulse 82; Resp 19; Pulse Ox 98% on R/A; ss 12:03 BP 98 / 77; Pulse 63; Resp 18; Pulse Ox 100% on R/A; ss ED Course: 08:56 Patient arrived in ED. ph 09:01 Arm band placed on right wrist. ss 09:02 Triage completed. ph 09:03 Patient has correct armband on for positive identification. Placed in gown. Bed in low ph position. Call light in reach. Side rails up X2. library monitor on. Pulse ox on. NIBP on. Warm blanket given. Verbal reassurance given. 09:11 Figueroa Simon PA is PHCP. jr8 09:11 Isaiah Tim MD is Attending Physician. jr8 09:30 EKG done, by ED staff, reviewed by Figueroa CONDE. dh3 09:35 Inserted saline lock: 20 gauge in right antecubital area, using aseptic technique. ss Blood collected. 09:40 Chest Single View XRAY In Process Unspecified. EDMS 09:59 Patricia Greco, RN is Primary Nurse. ss 10:00 Straight cath inserted, using sterile technique, 16 Fr. Specimen obtained. Returned ss clear yellow urine. Patient tolerated poorly. Pt comforted by during procedure which seemed to calm her down. Pt is confused. HX of dementia. Patient maintains SpO2 saturation greater than 95% on room air. 10:03 Urine Microscopic Only Sent. dh3 13:37 lactate sepsis drawn by me and sent to lab. dh3 14:30 No provider procedures requiring assistance completed. IV discontinued, intact, ss bleeding controlled, No redness/swelling at site. Pressure dressing applied. Administered Medications: 10:48 Drug: NS 0.9% 1000 ml Route: IV; Rate: 1000 ml; Site: right antecubital; 10:48 Drug: Potassium Chloride 20 mEq Route: IV; Rate: calculated rate; Site: right ss antecubital; Outcome: 13:04 Discharge ordered by . 8 14:30 Discharged to home ambulatory. 14:30 Condition: good 14:30 Discharge instructions given to patient, family, Instructed on discharge instructions, follow up and referral plans. Demonstrated understanding of instructions, follow-up care. 14:54 Patient left the ED. Signatures: Dispatcher [employer] [facility] Patricia Greco RN RN Figueroa Simon PA PA 8 Anette Chris RN RN Nhi Blue 3 Corrections: (The following items were deleted from the chart) 14:48 13:00 Reassessment: awaiting for 2nd lactate to result prior to discharge home. ss ss
--- NOTE | 2020-04-03 22:35 | EKG ---
Test Date: 2020-04-02 Test Time: 09:34:53 Inspector Boiler: JERRI MEASUREMENT RESULTS: Intervals: Rate: 66 MA: 202 QRSD: 64 QT: 404 QTc: 423 [place]: P: 77 MA: 202 QRS: 29 T: 61 INTERPRETIVE STATEMENTS: Normal sinus rhythm Possible Left atrial enlargement Low voltage QRS Borderline ECG Compared to ECG 11/14/2019 11:09:59 Low QRS voltage now present Electronically Signed On 04-03-20 22:30:01 RN PRIOR AUTHORIZATION by Floyd Carias
== END 2020-04-02 14:54 | disposition home or self-care (01) ==
LOC: ER 08:55
DX: E86.0 Dehydration (principal); E87.6 Hypokalemia; G30.9 Alzheimer's disease, unspecified; F02.80 Dementia in other diseases classified elsewhere, unspecified severity, without behavioral disturbance, psychotic disturbance, mood disturbance, and anxiety; Z20.822 Contact with and (suspected) exposure to COVID-19
CPT/HCPCS: 93005; 87040 ×2; 85025; 80048; 36415; 82550; 85610; 80076; 83605 ×2; 85730; 84484; 83690; 84145; 0240U; 71045; 51702; 96374; 99285; J3480; J7030; 81003; 81015

== ENCOUNTER 2020-07-25 12:39 | Observation (INO) | payer OTHER ==
--- OUTSIDE RECORDS SUMMARY | 2020-07-25 12:41 | XMS REPORT | Continuity of Care Document ---
:1940 Author Organization [facility] t Address 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 Social History Social Habit Start Date Stop Date Quantity Comments Source History [facility] Meth odist Alcohol Std Drinks History [facility] od[facility] Alcohol Binge Alcohol intake 2019-07-30 2019-07-30 Ex-drinker [facility] Me thodist 00:00:00 00:00:00 (finding) History SDOH 2019-07-30 2019-07-30 1 [facility] Meth odist Alcohol Frequency 00:00:00 00:00:00 Sex Ass[birth year] At [birth year] F Han Dumont ethodist 00:00:00 00:00:00 Smoking Status Start Date Stop Date Source Never smoker Han Elise t Medications Ordered Filled Start Stop Current Ordering Indication Dosage Frequency Signature Comments Components Source Medication Medication Date Date Medication? Clinician (SIG) Name Name loperamide 2019- Yes 2mg Take 2 mg [place] (IMODIUM) 2 5-05 by mouth. Met hodi mg capsule 13:20: st 50 aspirin 2019-0 Yes 81mg Take 81 mg [place] (ECOTRIN) 5-05 by mouth. Metho di 81 MG 13:20: st enteric 50 coated tablet multivitami 2020-0 Yes 1{capsu Take 1 [place] n-Ca-iron-m 5-05 le} capsule by Nc thodi inerals 13:20: mouth. st tablet 50 mirtazapine 2019-0 Yes 7.5mg Take 7.5 [place] (REMERON) 4-20 mg by Methodi 7.5 MG 00:00: mouth. st tablet 00 donepeziL Yes 10mg Take 10 mg [place] (ARICEPT) 4-17 by mouth. Metho di 10 MG 00:00: st tablet 00 Vital Signs Vital Name Observation Time Observation Value Comments Source Systolic blood 2019-07-30 13:18:00 127 mm[Hg] [facility] pressure Diastolic blood 2019-07-30 13:18:00 60 mm[Hg] Daphne mayberry [facility] pressure Heart rate 2019-07-30 13:18:00 63 /min Han Crawford Body height 2019-07-30 13:18:00 157.5 cm Han Crawford Body weight 2019-07-30 13:18:00 61.236 kg Han Crawford BMI 2019-07-30 13:18:00 24.69 kg/m2 Han Crawford Procedures This patient has no known procedures. Plan of Care Planned Activity Planned Date Details Comments Source Future Scheduled 2020-10-25 INFLUENZA VACCINE [facility] Test 00:00:00 [code = INFLUENZA VACCINE] Future Scheduled 2005 65+ PNEUMOCOCCAL Short [facility] Test 00:00:00 VACCINE (1 of 1 - PPSV23) [code = 65+ PNEUMOCOCCAL VACCINE (1 of 1 - PPSV23)] Future Scheduled 1990 SHINGLES VACCINES (#1) H ougeraldo [facility] Test 00:00:00 [code = SHINGLES VACCINES (#1)] Future Scheduled 1956 COVID-19 VACCINE (1) Maria Del Rosario chow [facility] Test 00:00:00 [code = COVID-19 VACCINE (1)] Encounters Start End Encounter Admission Attending Care Care Encounter Source Date/Time Date/Time Type Type Clinicians Facility Department ID 2020-04-19 2020-04-19 [id number] 00:00:00 00:00:00 Outreach [facility] [id number] [facility] [id number] MAN [id number] 2019-10-29 2019-10-29 Office [facility] [id number] 09:41:49 10:35:49 Visit Robert Lerma [id number] Servando [id number] Carole [id number] [address] 2019-07-30 2019-07-30 Outpatient [facility] [id number] Cory 00:00:00 00:00:00 ROSALBA [address] Results This patient has no known results.
[2020-07-25] MEDS ORDERED: MEPERIDINE HCL 25 MG/ML SYR ONE (13:31)
[2020-07-25] MEDS ORDERED: NA CHLORIDE 0.9% 1,000 ML ONE (13:31)
[2020-07-25 13:56] LABS: Absolute Lymphocytes (CBC) 2.4 K/uL (0.7-4.9); Hematocrit 42.9 % (36.0-45.0); Lymphocytes % 44.2 % (15.3-44.8); MPV 8.7 fL (7.6-11.3); RBC Red Blood Cell Count 4.81 M/uL (3.86-4.86)
[2020-07-25 14:03] LABS: ALT/SGPT 19 U/L (12-78); AST/SGOT 19 U/L (15-37); Albumin 3.4 g/dL (3.4-5.0); Alkaline Phosphatase 67 U/L (45-117); BUN Blood Urea Nitrogen 15 mg/dL (7-18); Bicarbonate 26 mmol/L (21-32); Bilirubin Direct < 0.1 mg/dL (0-0.2); Bilirubin Total 0.4 mg/dL (0.2-1.0); Glucose Level 142 mg/dL (74-106); Lipase 87 U/L (73-393); Potassium 3.5 mmol/L (3.5-5.1); Sodium Level 146 mmol/L (136-145)
--- NOTE | 2020-07-25 14:32 | RAD REPORT ---
EXAM DESCRIPTION: CT - Abdomen Pelvis W Contrast - 07/25/2020 2:16 pm CLINICAL HISTORY: Abd pain;Constipation COMPARISON: CT study April 25, 2019 TECHNIQUE: Biphasic, helical CT imaging of the abdomen and pelvis was performed following 100 ml non -ionic IV contrast. No oral contrast administered. All CT scans are performed using dose optimization technique as appropriate and may include automated exposure control or mA/KV adjustment according to patient size. FINDINGS: No suspicious findings in the lung bases. No cardiomegaly or pericardial effusion. Bilater al breast implants are in place with densely calcified implant capsules. The liver, spleen, and pancreas show no suspicious findings. Gallbladder and biliary tree are also wi thout suspicious finding. Symmetric renal function is seen with no hydronephrosis or suspicious renal mass. No pyelonephritis o r acute parenchymal process. Contracted urinary bladder shows no suspicious findings. No adrenal abno rmalities. Uterus and ovaries show no suspicious findings. No dilated bowel loops or bowel wall thickening. Large amount of stool is present dilating the rectum to 6.5 cm. Moderate stool volume elsewhere in the colon. No free air, free fluid or inflammatory str anding. No hernia, mass or bulky lymphadenopathy. No appendicitis findings. No suspicious bony findings. Degenerative and scoliotic changes are present in the spine. IMPRESSION: Large stool volume dilates the rectum to 6.5 cm. There is moderate stool volume elsewher e in the colon. Additional nonacute findings detailed in the body of the report.
[2020-07-25] MEDS ORDERED: FLEET ENEMA ADULT PR ONE (14:50)
--- NOTE | 2020-07-25 15:03 | ER ---
Nurse's Notes [facility] Name: Christine Alcaraz Age: 80 yrs Sex: Female : 1940 Arrival Date: 07/25/2020 Time: 12:40 Bed 2 Private MD: Diagnosis: Fecal impaction;Dehydration;Constipation, unspecified Presentation: 07/25 12:49 Chief complaint: Spouse and/or significant other states: lower abd pain and rectal pain ss than began today. believes that patient may be constipated. Last BM was noted to be normal on Monday. Coronavirus screen: Client denies travel out of the [place] in the last 14 days. Ebola Screen: Patient denies exposure to infectious person. Patient denies travel to an Ebola-affected area in the 21 days before illness onset. Initial Sepsis Screen: Does the patient meet any 2 criteria? No. Patient's initial sepsis screen is negative. Does the patient have a suspected source of infection? No. Patient's initial sepsis screen is negative. Risk Assessment: Do you want to hurt yourself or someone else? Patient reports no desire to harm self or others. Onset of symptoms was July 25, 2020. 12:49 Method Of Arrival: Ambulatory ss 12:49 Acuity: AYLIN 3 ss Historical: - Allergies: 12:51 No Known Allergies; ss - PMHx: 12:51 Alzheimers; Dementia; ss - PSHx: 12:51 None; ss - Immunization history:: Adult Immunizations up to date. - Social history:: Smoking status: Patient denies any tobacco usage or history of. - Family history:: not pertinent. - Hospitalizations: : No recent hospitalization is reported. Screenin:41 Abuse screen: Denies threats or abuse. Nutritional screening: No deficits noted. kg Tuberculosis screening: No symptoms or risk factors identified. Fall Risk No fall in past 12 months (0 pts). Secondary diagnosis (15 points) Alzheimer's, dementia, IV access (20 points). Ambulatory Aid- None/Bed Rest/Nurse Assist (0 pts). Gait- Weak (10 pts.). Mental Status- Overestimates/Forgets Limitations (15 pts.). Total Tan Fall Scale indicates High Risk Score (45 or more points). Fall prevention measures have been instituted. Side Rails Up X 2 Placed Close to Nursing Station Frequent Obs/Assessments Occuring Family Present and informed to notify staff if the need to leave the bedside As available patient and family educated on Fall Prevention Program and Strategies. Assessment: 13:19 General: Appears distressed, uncomfortable, Behavior is anxious, fussy, restless, kg Smells of. Pain: Complains of pain in abdomen Unable to use pain scale. Patient is disoriented. Does not appear to understand pain scale. Patient appears to be crying, to be grimacing, to be guarding, to be moaning, restless, FLACC scale score is 7 out of 10. Neuro: Level of Consciousness is awake, alert, obeys commands, confused, Oriented to person, Cardiovascular: No deficits noted. Respiratory: No deficits noted. GI: Bowel sounds Abd is soft Parent/caregiver reports the patient having constipation, intolerance of food, intolerance of fluids. : Parent/caregiver report the patient having incontinence. EENT: No deficits noted. Derm: No deficits noted. Musculoskeletal: No deficits noted. Vital Signs: 12:49 BP 119 / 44; Pulse 118; Resp 20; Temp 97.0(TE); Pulse Ox 98% on R/A; Weight 58.97 kg; ss 16:19 Pulse 79; Pulse Ox 99% on R/A; kg 18:13 BP 94 / 77; Pulse 75; Resp 20; Pulse Ox 98% on R/A; kg ED Course: 12:40 Patient arrived in ED. as 12:51 Triage completed. ss 12:51 Arm band placed on right wrist. ss 12:53 Charly De Leon MD is Attending Physician. rn 13:01 Janny Henriquez is Primary Nurse. kg 13:10 Inserted saline lock: 20 gauge in left antecubital area, using aseptic technique. kg 14:16 CT Abd/Pelvis - IV Contrast Only In Process Unspecified. EDMS 14:41 Patient has correct armband on for positive identification. Fall risk band placed. kg Placed in gown. Bed in low position. Call light in reach. Side rails up X2. Adult w/ patient. 15:02 Freeman Aguiar MD is Hospitalizing Provider. rn 18:15 Report given to Lisa CHAMBERLAINlining inserter. kg 18:15 No provider procedures requiring assistance completed. kg 18:51 Patient transferred, IV remains in place. kg Administered Medications: 13:16 Drug: NS 0.9% 1000 ml Route: IV; Rate: 1000 ml; Site: left antecubital; ca1 17:30 Follow up: IV Status: Completed infusion; IV Intake: 1000ml kg 13:17 Drug: Demerol (meperidine) 12.5 mg Route: IVP; Site: left antecubital; ca1 14:40 Follow up: Response: No adverse reaction; Marked relief of symptoms kg 14:35 Drug: Fleet Enema (sodium phosphate) 133 ml Route: RI; kg 15:05 Follow up: Response: No adverse reaction; Other; Pt had medium size soft BM kg Intake: 17:30 IV: 1000ml; Total: 1000ml. kg 15:04 Medium size soft stool kg 16:19 Small brown formed stool kg Output: 15:04 Stool: 1 (Formed Stool) ; Total: 0ml. kg 16:19 Stool: 1 (Formed Stool) ; Total: 0ml. kg 15:04 Medium size soft stool kg 16:19 Small brown formed stool kg Outcome: 15:02 Decision to Hospitalize by Provider. rn 18:16 Admitted to Med/surg accompanied by tech, via stretcher, with chart, Report called to miah Gonzalez RN 18:16 Condition: stable 18:16 Instructed on safety practices. 18:52 Patient left the ED. kg Signatures: Dispatcher [employer] Shellie Lopez Roman, MD MD rn Smirch, Shelby, RN RN ss Acob, Cheryl, RN RN ca1 Graham, Kristen
--- NOTE | 2020-07-25 15:03 | EDPHYS ---
Physician Documentation [facility] [place], [place] Name: Christine Alcaraz Age: 80 yrs Sex: Female : 1940 Arrival Date: 07/25/2020 Time: 12:40 Bed 2 Private MD: ED Physician Charly De Leon HPI: 07/25 13:06 This 80 yrs old Female presents to ER via Ambulatory with complaints of rn Abdominal Pain, Constipation. 13:06 The patient presents with abdominal pain that is diffuse. Onset: The symptoms/episode rn began/occurred 3 day(s) ago. The symptoms do not radiate. Associated signs and symptoms: Pertinent positives: constipation, Pertinent negatives: diarrhea, fever, nausea, vomiting, vomiting blood. The symptoms are described as crampy, intermittent. Modifying factors: The symptoms are alleviated by nothing, the symptoms are aggravated by touching the area. Severity of pain: At its worst the pain was moderate in the emergency department the pain is unchanged. The patient has experienced a previous episode. The patient has not recently seen a physician. Reports abd pain, constipation, last BM 3-4 days ago, takes anti-diarrheal medication, doesn't eat or drink much, + advanced dementia. . Historical: - Allergies: 12:51 No Known Allergies; ss - PMHx: 12:51 Alzheimers; Dementia; ss - PSHx: 12:51 None; ss - Immunization history:: Adult Immunizations up to date. - Social history:: Smoking status: Patient denies any tobacco usage or history of. - Family history:: not pertinent. - Hospitalizations: : No recent hospitalization is reported. ROS: 13:06 Constitutional: Negative for fever, chills, and weight loss, Eyes: Negative for injury, rn pain, redness, and discharge, Cardiovascular: Negative for chest pain, palpitations, and edema, Respiratory: Negative for shortness of breath, cough, wheezing, and pleuritic chest pain, Abdomen/GI: Negative for nausea, vomiting, diarrhea Back: Negative for injury and pain, : Negative for injury, bleeding, discharge, and swelling, MS/Extremity: Negative for injury and deformity, Skin: Negative for injury, rash, and discoloration, Neuro: Negative for headache, weakness, numbness, tingling, and seizure. Exam: 13:06 Constitutional: This is a well developed, well nourished patient who is awake, alert, rn appears uncomfortable Head/Face: Normocephalic, atraumatic. ENT: dry MM Cardiovascular: Tachycardic, regular Respiratory: No increased work of breathing, no retractions or nasal flaring. Abdomen/GI: soft, mild periumbilical tenderness, no rebound Skin: Warm, dry MS/ Extremity: Pulses equal, no cyanosis. Neurovascular intact. Full, normal range of motion. Equal circumference. Neuro: Awake and alert Vital Signs: 12:49 BP 119 / 44; Pulse 118; Resp 20; Temp 97.0(TE); Pulse Ox 98% on R/A; Weight 58.97 kg; ss 16:19 Pulse 79; Pulse Ox 99% on R/A; kg 18:13 BP 94 / 77; Pulse 75; Resp 20; Pulse Ox 98% on R/A; kg MDM: 12:53 Patient medically screened. rn 14:59 Differential diagnosis: diverticulitis, non-specific abd pain, fecal impaction, rn obstruction, dehydration. Data reviewed: vital signs, nurses notes, lab test result(s), radiologic studies, CT scan, and as a result, I will admit patient. Counseling: I had a detailed discussion with the patient and/or guardian regarding: the historical points, exam findings, and any diagnostic results supporting the discharge/admit diagnosis, lab results, radiology results, the need for further work-up and treatment in the hospital. Response to treatment: There is no appreciated change of the patient's symptoms at this time, and as a result, I will admit patient. Admission orders: after a detailed discussion of the patient's condition and case, the admit orders are written by me. ED course: Pt with fecal impaction of rectum with moderate stool burden throughout rest of colon, will likely not be able to relieve impaction quickly or in ER, will need higher enemas and fluids. Will attempt manual disimpaction now that enema had no response. . 07/25 13:05 Order name: Basic Metabolic Panel; Complete Time: 14:06 rn 07/25 13:05 Order name: CBC with Diff; Complete Time: 14:06 rn 07/25 13:05 Order name: Hepatic Function; Complete Time: 14:06 rn 07/25 13:05 Order name: Lipase; Complete Time: 14:06 rn 07/25 16:31 Order name: SARS-COV-2 RT PCR; Complete Time: 16:43 EDLA 07/25 13:05 Order name: IV Saline Lock; Complete Time: 13:24 rn 07/25 13:05 Order name: Labs collected and sent; Complete Time: 13:24 rn 07/25 13:05 Order name: CT Abd/Pelvis - IV Contrast Only; Complete Time: 14:34 rn Administered Medications: 13:16 Drug: NS 0.9% 1000 ml Route: IV; Rate: 1000 ml; Site: left antecubital; ca1 17:30 Follow up: IV Status: Completed infusion; IV Intake: 1000ml kg 13:17 Drug: Demerol (meperidine) 12.5 mg Route: IVP; Site: left antecubital; ca1 14:40 Follow up: Response: No adverse reaction; Marked relief of symptoms kg 14:35 Drug: Fleet Enema (sodium phosphate) 133 ml Route: AL; kg 15:05 Follow up: Response: No adverse reaction; Other; Pt had medium size soft BM kg Disposition: 07/25/20 15:02 Hospitalization ordered by Freeman Aguiar for Observation. Preliminary diagnosis are Fecal impaction, Dehydration, Constipation, unspecified. - Bed requested for Telemetry/MedSurg (observation). - Status is Observation. kg - Condition is Stable. - Problem is new. - Symptoms are unchanged. Signatures: Dispatcher [employer] EDLA Charly De Leon MD MD rn Smirch, Shelby, RN RN ss Omid Arreguin RN RN ja1 Haylee Monroy RN RN ca1 Janny Henriquez kg Corrections: (The following items were deleted from the chart) 15:46 15:35 CORONAVIRUS+MR.LAB.BRZ ordered. [facility] EDLA 17:28 15:02 Hospitalization Ordered by Freeman Aguiar MD for Observation. Preliminary diagnosis ja1 is Fecal impaction; Dehydration; Constipation, unspecified. Bed requested for Telemetry/MedSurg (observation). Status is Observation. Condition is Stable. Problem is new. Symptoms are unchanged. rn 18:52 17:28 07/25/2020 15:02 Hospitalization Ordered by Freeman Aguiar MD for Observation. kg Preliminary diagnosis is Fecal impaction; Dehydration; Constipation, unspecified. Bed requested for Telemetry/MedSurg (observation). Status is Observation. Condition is Stable. Problem is new. Symptoms are unchanged. ja1
[2020-07-25] MEDS ORDERED: ONDANSETRON 4 MG/2 ML VIAL IV PRN (18:00)
[2020-07-25 18:23] VITALS: O2SAT 96
[2020-07-25 19:11] VITALS: BMI 23.8
[2020-07-25] MEDS: NA CHLORIDE 0.9% 1,000 ML IV SCH (20:13)
[2020-07-25] MEDS ORDERED: ZIPRASIDONE MESYLA 20 MG/VIAL IM PRN (21:40)
[2020-07-25] MEDS ORDERED: WATER FOR INJ,STERILE 10 ML IM PRN (21:40)
[2020-07-25] MEDS: levETIRAcetam 500 MG TAB PO SCH (22:02)
[2020-07-26] MEDS ORDERED: FLEET ENEMA ADULT PR ONE (06:00)
[2020-07-26] MEDS: NA CHLORIDE 0.9% 1,000 ML IV SCH (06:21)
[2020-07-26 06:38] LABS: Absolute Lymphocytes (CBC) 1.9 K/uL (0.7-4.9); Basophils % 0.6 % (0-1.3); Hematocrit 35.2 % (36.0-45.0); Lymphocytes % 29.9 % (15.3-44.8); MPV 8.7 fL (7.6-11.3); RBC Red Blood Cell Count 3.95 M/uL (3.86-4.86)
[2020-07-26 06:57] LABS: Potassium 3.5 mmol/L (3.5-5.1)
[2020-07-26 08:27] VITALS: BP 98/60; TEMP 97.4
[2020-07-26] MEDS: levETIRAcetam 500 MG TAB PO SCH (09:00)
--- NOTE | 2020-07-26 11:20 | P.SSS ---
Patient History Date of Service: 07/26/20 Reason for admission: CONSTIPATION History of Present Illness: MELL HAS HAD DIARRHEA ALL HER LIFE. SHE HAS SEVERE DEMENTIA AND TAKES CARE OF HER. HE KEPT ON GIVING HER IMMODIUM FOR WATERY STOOL THAT IS ACTUALLY WATER COMING AROUND A 7 CM DIAMETER STOOL IMPACTION. THEY GAVE HER ENEMAS AND SHE HAD LARGE BM 3 TIMES. I EXPLAINED FOR TO AVOID CONSTIPATING AGENTS. I ASKED TO GIVE FIBER DAILY WITH 64 OZ OF WATER. HE SAYS SHE NEVER DRINKS ANY LIQUIDS FOR YEARS. HE SAYS HE WILL TRY. Allergies No Known Allergies Allergy (Unverified 04/25/19 15:46) Home medications list reviewed: Yes Home Medications: Donepezil HCl 10 mg PO DAILY 04/25/19 Mirtazapine 15 mg PO DAILY 04/25/19 Levetiracetam [Keppra] 250 mg PO BID 07/25/20 - Past Medical/Surgical History Has patient received pneumonia vaccine in the past: No Diabetic: No -: alzheimer's -: dementia -: seizure takes keppra at home - Social History Smoking Status: Never smoker Alcohol use: No CD- Drugs: No Caffeine use: No Place of Residence: Home Review of Systems 10-point ROS is otherwise unremarkable General: Weakness, Malaise Physical Examination - Vital Signs Temperature: 97.4 F Blood Pressure: 98/60 Pulse: 65 Respirations: 16 Pulse Ox (%): 96 - Physical Exam General: Oriented x3, Mild distress, Confused (NORMAL FOR HER.) HEENT: Atraumatic, PERRLA, Mucous membr. moist/pink, EOMI, Sclerae nonicteric Neck: Supple, 2+ carotid pulse no bruit, No LAD, Without JVD or thyroid abnormality Respiratory: Clear to auscultation bilaterally, Normal air movement Cardiovascular: Regular rate/rhythm, Normal S1 S2 Gastrointestinal: Normal bowel sounds, No tenderness Musculoskeletal: No tenderness Integumentary: No rashes Neurological: Normal gait, Normal speech, Normal strength at 5/5 x4 extr, Normal tone, Normal affect Lymphatics: No axilla or inguinal lymphadenopathy - Studies Laboratory Data (last 24 hrs) 07/25/20 13:10: WBC 5.50, Hgb 14.2, Hct 42.9, Plt Count 247 07/25/20 13:10: Sodium 146 H, Potassium 3.5, BUN 15, Creatinine 1.08, Glucose 142 H, Total Bilirubin 0.4, AST 19, ALT 19, Alkaline Phosphatase 67, Lipase 87 - Diagnosis (Problem(s)) (1) Impacted stool in rectum Current Visit: Yes Status: Acute Plan: RESOLVED NOW. I TALKED TO AND EXPLAINED THE PLAN. (2) Alzheimer disease Current Visit: Yes Status: Chronic - Disposition Disposition: ROUTINE DISCHARGE Condition: FAIR
[2020-07-26] MEDS ORDERED: DONEPEZIL HCL 5 MG TAB PO SCH (21:00)
[2020-07-26] MEDS ORDERED: MIRTAZAPINE 15 MG TAB PO SCH (21:00)
== END 2020-07-26 11:27 | disposition home or self-care (01) ==
LOC: ER 12:39 → ERHOLD 17:27 → 2ND 18:14
PROVIDERS: ADMIT Internal Medicine; ATTEND Internal Medicine
DX: K59.00 Constipation, unspecified (principal); G30.9 Alzheimer's disease, unspecified; F02.80 Dementia in other diseases classified elsewhere, unspecified severity, without behavioral disturbance, psychotic disturbance, mood disturbance, and anxiety; Z20.822 Contact with and (suspected) exposure to COVID-19
CPT/HCPCS: 96361; 85025 ×2; 80048 ×2; 36415; 82565; 80076; 83690; 74177; 96374; 99285; U0003; Q9967; J3486; J2175; J7030 ×3; G0378 ×3

== ENCOUNTER 2021-03-15 17:02 | Emergency (ER) | payer OTHER ==
--- OUTSIDE RECORDS SUMMARY | 2021-03-15 17:05 | XMS REPORT | Continuity of Care Document ---
:1940 Author Organization [facility] t Address [address] [place] [address] Care Team Providers Name Role Phone Nikita Pardo DO Attending Clinician Dwight RUSSELL, Sulema Attending Clinician SULEMA HARRIS Attending Clinician Unavailable SULEMA HARRIS Attending Clinician Unavailable Doctor Unassigned, Name Attending Clinician Unavailable SAAB Attending Clinician Unavailable Payers Payer Name Policy Type Policy Number Effective Date Expiration Date S ource Problems This patient has no known problems. Allergies, Adverse Reactions, Alerts Allergy Allergy Status Severity Reaction(s) Onset Inactive Treating Comm ents Source Name Type Date Date Clinician NO KNOWN Drug Active Univers ALLERGIE Class ity of [facility] Social History Social Habit Start Date Stop Date Quantity Comments Source Sex Assigned At [facility] Exposure to Not sure [facility] SARS-CoV-2 [facility] (event) Branch Alcohol intake 2019-10-29 2019-10-29 Current [facility] 00:00:00 00:00:00 non-drinker of [facility] alcohol [place] (finding) Tobacco use and 2019-10-29 2019-10-29 Never used Universit y of exposure 00:00:00 00:00:00 [facility] Smoking Status Start Date Stop Date Source Never smoker [facility] Medications Ordered Filled Start Stop Current Ordering Indication Dosage Frequency Signature Comments Components Source Medication Medication Date Date Medication? Clinician (SIG) Name Name mirtazapine Yes [id number] 15mg Take 1 Univers ([place]) 8-04 tablet by ity o f 15 mg 00:00: mouth at [place] tablet 00 bedtime. Medical Branch mirtazapine 2020-0 Yes [id number] 15mg Take 1 Univers ([place]) 8-04 tablet by ity o f 15 mg 00:00: mouth at [place] tablet 00 bedtime. Medical Branch mirtazapine 2020-0 Yes [id number] 15mg Take 1 Univers ([place]) 8-04 tablet by ity o f 15 mg 00:00: mouth at [place] tablet 00 bedtime. Medical Branch mirtazapine 2020-0 Yes [id number] 7.5mg Take 1 Univers 7.5 mg 6-29 tablet by ity of tablet 00:00: mouth [place] 00 daily. Medical Branch mirtazapine 2020-0 2020- No [id number] 7.5mg Take 1 Univers 7.5 mg 6-29 08-04 tablet by ity of tablet 00:00: 00:00 mouth [place] 00 :00 daily. Medical Branch mirtazapine 2020-0 2020- No [id number] 7.5mg Take 1 Univers 7.5 mg 6-29 08-04 tablet by ity of tablet 00:00: 00:00 mouth [place] 00 :00 daily. Medical Branch mirtazapine 2020-0 Yes [id number] 7.5mg Take 1 Univers 7.5 mg 4-20 tablet by ity of tablet 00:00: mouth [place] 00 daily. Medical Branch mirtazapine 2020-0 2020- No [id number] 7.5mg Take 1 Univers 7.5 mg 4-20 06-26 tablet by ity of tablet 00:00: 00:00 mouth [place] 00 :00 daily. Medical Branch donepezil 2020-0 Yes 10mg Take 1 Univer s 10 mg 4-17 tablet by ity of tablet 00:00: mouth at [place] 00 bedtime. Medical Branch donepezil 2020-0 Yes 10mg Take 1 Univer s 10 mg 4-17 tablet by ity of tablet 00:00: mouth at [place] 00 bedtime. Medical Branch donepezil 2020-0 Yes 10mg Take 1 Univer s 10 mg 4-17 tablet by ity of tablet 00:00: mouth at [place] 00 bedtime. Medical Branch donepezil 2020-0 Yes 10mg Take 1 Univer s 10 mg 4-17 tablet by ity of tablet 00:00: mouth at [place] 00 bedtime. Medical Branch donepezil 2020-0 Yes 10mg Take 1 Univer s 10 mg 4-17 tablet by ity of tablet 00:00: mouth at [place] 00 bedtime. Medical Branch donepezil 2019-0 Yes 10mg Take 1 Univer s 10 mg 4-17 tablet by ity of tablet 00:00: mouth at [place] 00 bedtime. Medical Branch donepezil 0 Yes 10mg Take 1 Univer s 10 mg 4-17 tablet by ity of tablet 00:00: mouth at [place] 00 bedtime. Medical Branch donepezil 0 Yes 10mg Take 1 Univer s 10 mg 4-17 tablet by ity of tablet 00:00: mouth at [place] 00 bedtime. Medical Branch mirtazapine Yes [id number] 7.5mg Take 1 Univers 7.5 mg 2-17 tablet by ity of tablet 00:00: mouth [place] 00 daily. Medical Branch mirtazapine Yes [id number] 7.5mg Take 1 Univers 7.5 mg 2-17 tablet by ity of tablet 00:00: mouth [place] 00 daily. Medical Branch mirtazapine 0 2020- No [id number] 7.5mg Take 1 Univers 7.5 mg 2-17 04-18 tablet by ity of tablet 00:00: 00:00 mouth [place] 00 :00 daily. Medical Branch mirtazapine 2018-03 Yes [id number] 7.5mg Take 1 Univers 7.5 mg 2-16 tablet by ity of tablet 00:00: mouth [place] 00 daily. Medical Branch donepezil 2018-03 Yes 10mg Take 1 Univer s 10 mg 2-16 tablet by ity of tablet 00:00: mouth at [place] [address] bedtime. Medical Branch donepezil 2018-03 Yes 10mg Take 1 Univer s 10 mg 2-16 tablet by ity of tablet 00:00: mouth at [place] 00 bedtime. Medical Branch donepezil 2018-03 2020- No 10mg Take 1 Unive rs 10 mg 2-16 04-17 tablet by ity of tablet 00:00: 00:00 mouth at [place] 00 :00 bedtime. Medical Branch mirtazapine 2018-03 2020- No [id number] 7.5mg Take 1 Univers 7.5 mg 2-16 02-17 tablet by ity of tablet 00:00: 00:00 mouth [place] 00 :00 daily. Medical Branch mirtazapine 2019- Yes [id number] 7.5mg Take 1 Univers 7.5 mg 7-29 tablet by ity of tablet 00:00: mouth [place] 00 daily. Medical Branch donepezil 2019- Yes 10mg Take 1 Univer s 10 mg 7-01 tablet by ity of tablet 00:00: mouth at [place] 00 bedtime. Medical Branch aspirin Yes 81mg Take 81 mg Univ ers (ADULT LOW 6-25 by mouth ity o f DOSE 20:48: daily. [place] ASPIRIN) 81 09 Medical mg EC Branch tablet loperamide Yes 2mg Take 2 mg Un david 2 mg 6-25 by mouth ity of capsule 20:48: as needed [place] 09 for Medical Diarrhea. Branch multivit Yes 1{capsu Take 1 Univ ers with 6-25 le} capsule by ity of calcium,iro 20:48: mouth [place] n,min 09 daily. Medical (WOMEN'S Branch DAILY MULTIVITAMI N ORAL) aspirin Yes 81mg Take 81 mg Univ ers (ADULT LOW 6-25 by mouth ity o f DOSE 20:48: daily. [place] ASPIRIN) 81 09 Medical mg EC Branch tablet loperamide Yes 2mg Take 2 mg Un david 2 mg 6-25 by mouth ity of capsule 20:48: as needed [place] 09 for Medical Diarrhea. Branch multivit Yes 1{capsu Take 1 Univ ers with 6-25 le} capsule by ity of calcium,iro 20:48: mouth [place] n,min 09 daily. Medical (WOMEN'S Branch DAILY MULTIVITAMI N ORAL) aspirin Yes 81mg Take 81 mg Univ ers (ADULT LOW 6-25 by mouth ity o f DOSE 20:48: daily. [place] ASPIRIN) 81 09 Medical mg EC Branch tablet loperamide 0 Yes 2mg Take 2 mg Un david 2 mg 6-25 by mouth ity of capsule 20:48: as needed [place] 09 for Medical Diarrhea. Branch multivit 2019 Yes 1{capsu Take 1 Univ ers with 6-25 le} capsule by ity of calcium,iro 20:48: mouth [place] n,min 09 daily. Medical (WOMEN'S Branch DAILY MULTIVITAMI N ORAL) aspirin Yes 81mg Take 81 mg Univ ers (ADULT LOW 6-25 by mouth ity o f DOSE 20:48: daily. [place] ASPIRIN) 81 09 Medical mg EC Branch tablet loperamide 0 Yes 2mg Take 2 mg Un david 2 mg 6-25 by mouth ity of capsule 20:48: as needed [place] 09 for Medical Diarrhea. Branch multivit Yes 1{capsu Take 1 Univ ers with 6-25 le} capsule by ity of calcium,iro 20:48: mouth [place] n,min 09 daily. Medical (WOMEN'S Branch DAILY MULTIVITAMI N ORAL) aspirin 2019-0 Yes 81mg Take 81 mg Univ ers (ADULT LOW 6-25 by mouth ity o f DOSE 20:48: daily. [place] ASPIRIN) 81 09 Medical mg EC Branch tablet loperamide 0 Yes 2mg Take 2 mg Un david 2 mg 6-25 by mouth ity of capsule 20:48: as needed [place] for Medical Diarrhea. Branch multivit Yes 1{capsu Take 1 Univ ers with 6-25 le} capsule by ity of calcium,iro 20:48: mouth [place] n,min 09 daily. Medical (WOMEN'S Branch DAILY MULTIVITAMI N ORAL) aspirin 2019-0 Yes 81mg Take 81 mg Univ ers (ADULT LOW 6-25 by mouth ity o f DOSE 20:48: daily. [place] ASPIRIN) 81 09 Medical mg EC Branch tablet aspirin 0 Yes 81mg Take 81 mg Univ ers (ADULT LOW 6-25 by mouth ity o f DOSE 20:48: daily. [place] ASPIRIN) 81 09 Medical mg EC Branch tablet loperamide 0 Yes 2mg Take 2 mg Un david 2 mg 6-25 by mouth ity of capsule 20:48: as needed [place] 09 for Medical Diarrhea. Branch multivit Yes 1{capsu Take 1 Univ ers with 6-25 le} capsule by ity of calcium,iro 20:48: mouth [place] n,min 09 daily. Medical (WOMEN'S Branch DAILY MULTIVITAMI N ORAL) aspirin 2019-0 Yes 81mg Take 81 mg Univ ers (ADULT LOW 6-25 by mouth ity o f DOSE 20:48: daily. [place] ASPIRIN) 81 09 Medical mg EC Branch tablet loperamide 2018-0 Yes 2mg Take 2 mg Un david 2 mg 6-25 by mouth ity of capsule 20:48: as needed [place] 09 for Medical Diarrhea. Branch multivit Yes 1{capsu Take 1 Univ ers with 6-25 le} capsule by ity of calcium,iro 20:48: mouth [place] n,min 09 daily. Medical ([facility] [place] DAILY MULTIVITAMI N ORAL) loperamide Yes 2mg Take 2 mg Un david 2 mg 6-25 by mouth ity of capsule 20:48: as needed [place] 09 for Medical Diarrhea. Branch aspirin Yes 81mg Take 81 mg Univ ers (ADULT LOW 6-25 by mouth ity o f DOSE 20:48: daily. [place] ASPIRIN) 81 09 Medical mg EC Branch tablet loperamide Yes 2mg Take 2 mg Un david 2 mg 6-25 by mouth ity of capsule 20:48: as needed [place] 09 for Medical Diarrhea. Branch multivit Yes 1{capsu Take 1 Univ ers with 6-25 le} capsule by ity of calcium,iro 20:48: mouth [place] n,min 09 daily. Medical ([facility] [place] DAILY MULTIVITAMI N ORAL) multivit Yes 1{capsu Take 1 Univ ers with 6-25 le} capsule by ity of calcium,iro 20:48: mouth [place] n,min 09 daily. Medical ([facility] [place] DAILY MULTIVITAMI N ORAL) aspirin Yes 81mg Take 81 mg Univ ers (ADULT LOW 6-25 by mouth ity o f DOSE 20:48: daily. [place] ASPIRIN) 81 09 Medical mg EC Branch tablet loperamide Yes 2mg Take 2 mg Un david 2 mg 6-25 by mouth ity of capsule 20:48: as needed [place] 09 for Medical Diarrhea. Branch multivit Yes 1{capsu Take 1 Univ ers with 6-25 le} capsule by ity of calcium,iro 20:48: mouth [place] n,min 09 daily. Medical (WOMENS [place] DAILY MULTIVITAMI N ORAL) aspirin 0 Yes 81mg Take 81 mg Univ ers (ADULT LOW 6-25 by mouth ity o f DOSE 20:48: daily. [place] ASPIRIN) 81 09 Medical mg EC Branch tablet loperamide Yes 2mg Take 2 mg Un david 2 mg 6-25 by mouth ity of capsule 20:48: as needed [place] 09 for Medical Diarrhea. Branch multivit 2018- Yes 1{capsu Take 1 Univ ers with 6-25 le} capsule by ity of calcium,iro 20:48: mouth [place] n,min 09 daily. Medical (WOMEN'S Branch DAILY MULTIVITAMI N ORAL) Vital Signs Vital Name Observation Time Observation Value Comments Source Systolic blood 2019-10-29 14:43:00 92 mm[Hg] Univer sity of pressure [facility] Diastolic blood 2019-10-29 14:43:00 61 mm[Hg] Unive rsity of pressure [facility] Heart rate 2019-10-29 14:43:00 72 /min Universi ty of [facility] Respiratory rate 2019-10-29 14:43:00 18 /min Univ ersity of [facility] Body height 2019-10-29 14:43:00 157.5 cm Universi ty of [facility] Body weight 2019-10-29 14:43:00 61.78 kg Universi ty of [facility] BMI 2019-10-29 14:43:00 24.91 kg/m2 Universi ty of [facility] Systolic blood 2019-10-29 14:43:00 92 mm[Hg] Univer sity of pressure [facility] Diastolic blood 2019-10-29 14:43:00 61 mm[Hg] Unive rsity of [facility] Heart rate 2019-10-29 14:43:00 72 /min Universi ty of [facility] Branch Respiratory rate 2019-10-29 14:43:00 18 /min Univ ersity of [facility] Body height 2019-10-29 14:43:00 157.5 cm Universi ty of [facility] Body weight 2019-10-29 14:43:00 61.78 kg Universi ty of [facility] Branch BMI 2019-10-29 14:43:00 24.91 kg/m2 Universi ty of [facility] Body height 2018-10-22 20:33:00 157.5 cm Universi ty of [facility] Branch Body weight 2018-10-22 20:33:00 54.602 kg Universi ty of [facility] Branch BMI 2018-10-22 20:33:00 22.02 kg/m2 Universi ty of [facility] Procedures This patient has no known procedures. Encounters Start End Encounter Admission Attending Care Care Encounter Source Date/Time Date/Time Type Type Clinicians Facility Department ID 2020-04-19 2020-04-19 Patient Edvin [facility] 1.2.840.114 [id number] 00:00:00 00:00:00 Outreach Jordy PRIMARY [id number] Nikita CARE [id number] PAVILLION [id number] 2020-04-19 2020-04-19 Patient Edvin [facility] 1.2.840.114 [id number] Univers 00:00:00 00:00:00 Outreach Jord[place] PRIMARY [id number] i ty of [id number] [place] [phone] [place] [address] 2019-10-29 2019-10-29 Office Dwight [facility] 1.2.840.114 [id number] 09:41:49 10:35:49 Visit Raegan Lerm[place] [id number] [place] [id number] Professio [phone] [address] 2019-10-29 2019-10-29 Office Dwight [facility] 1.2.840.114 [id number] Univers 09:41:49 10:35:49 Visit Raegan Lerm[place] [id number] ity [id number] [phone] [place] dic[address] 2019-10-29 2019-10-29 Outpatient RAEGAN ROLDAN [facility] [id number] Univers 09:40:00 09:40:00 RAEGAN HARRIS itmaritza [facility] 2019-10-29 2019-10-29 Outpatient RAEGAN ROLDAN [facility] [id number] Univers 09:40:00 09:40:00 RAEGAN HARRIS [id number] itmaritza [facility] 2019-10-24 2019-10-24 Refill Doctor [facility] 1.2.840.114 [id number] Univers 00:00:00 00:00:00 UnassignedMaria Guadalupe [id number] ity of [place] [id number] [place] [phone] [place] dical [place] [address] [place] [address] 2019-10-24 2019-10-24 Refill Dwight, [facility] 1.2.840.114 [id number] Univers 00:00:00 00:00:00 Raegan Lerma [id number] [place]y [id number] [place] [phone] [facility] nal [address] [place] [address] 2019-09-20 2019-09-20 Refill Doctor [facility] 1.2.840.114 [id number] Univers 00:00:00 00:00:00 Unassigned, [place] [id number] ity of [place] [id number] [phone] [address] 2019-07-30 2019-07-30 Outpatient SAAB, [facility] [id number] [address] [place] [address] 00:00:00 00:00:00 [place] [id number] 2019-07-13 2019-07-13 Refill Doctor [facility] 1.2.840.114 [id number] Univers 00:00:00 00:00:00 UnassignedMaria Guadalupe [id number] ity of [id number] [place] [phone] [facility] nal [address] [place] [address] 2019-07-12 2019-07-12 Refill Dwight, [facility] 1.2.840.114 [id number] Univers 00:00:00 00:00:00 Raegan Lerma [id number] ity [id number] [phone] [facility] [address] [place] [address] 2019-05-07 2019-05-07 Refill Dwight, [facility] 1.2.840.114 [id number] Univers 00:00:00 00:00:00 Raegan Lerma [id number] ity [id number] [phone] [facility] nal [address] [place] [address] 2019-03-12 2019-03-12 Patient Doctor [facility] 1.2.840.114 [id number] Univers 00:00:00 00:00:00 Secure Msg Unassigned, Maria Guadal[place] [id number] ity of [place] [id number] [place] [phone] [place] [id number] Branch [facility] 2018-10-22 2018-10-22 Office Dwight [facility] 1.2.840.114 [id number] [facility] 15:18:49 16:10:53 Visit Raegan Lerma [id number] ity of [place] [id number] [place] [phone] [place] [id number] [facility] Results This patient has no known results.
[2021-03-15 17:39] LABS: Absolute Lymphocytes (CBC) 0.4 K/uL (0.7-4.9); Basophils % 0.3 % (0-1.3); Hematocrit 36.4 % (36.0-45.0); Lymphocytes % 7.3 % (15.3-44.8); MPV 8.1 fL (7.6-11.3); RBC Red Blood Cell Count 4.03 M/uL (3.86-4.86)
[2021-03-15] MEDS ORDERED: NA CHLORIDE 0.9% 500 ML ONE (17:43)
[2021-03-15] MEDS ORDERED: CEFTRIAXONE 1000 MG/VIAL ONE (17:43)
[2021-03-15] MEDS ORDERED: NA CHLORIDE 0.9% 50 ML ONE (17:43)
[2021-03-15 17:45] LABS: Urine Blood 2+ (Negative); Urine Glucose Negative (Negative); Urine Protein 1+ (Negative); Urine Specific Gravity >=1.030 (1.005-1.030); Urine pH 5.5 (5.0-7.0)
[2021-03-15 17:55] LABS: Albumin 3.1 g/dL (3.4-5.0); Bilirubin Total 0.4 mg/dL (0.2-1.0); Potassium 3.3 mmol/L (3.5-5.1); Protein, Total 6.3 g/dL (6.4-8.2)
[2021-03-15 17:57] LABS: Urine Amorphous Sediment 1+ /HPF (NONE SEEN); Urine Bacteria <20 /HPF (<20); Urine Mucus HEAVY /HPF (NONE SEEN); Urine RBC <5 /HPF (NONE SEEN)
--- NOTE | 2021-03-15 18:05 | RAD REPORT ---
EXAM DESCRIPTION: CT - Head Brain Wo Cont - 03/15/2021 5:56 pm CLINICAL HISTORY: MENTAL STATUS CHANGE COMPARISON: CT head March 2019 TECHNIQUE: Axial 5 mm thick images of the head were obtained without IV contrast. All CT scans are performed using dose optimization technique as appropriate and may include automated exposure control or mA/KV adjustment according to patient size. FINDINGS: No intracranial hemorrhage, mass, edema or shift of mid-line structures. No acute cortical based infarction. No cortical edema or sulcal effacement. Prominent atrophy and chronic ischemic misa nges are present matching comparison. Ventricles are in proportion to volume loss. Dense arterial karon e calcifications are present. Mastoid air cells and visualized portions of the paranasal sinuses are clear. No acute bony findings. IMPRESSION: No acute intracranial finding. Prominent atrophy and chronic ischemic change similar to March 2019.
--- NOTE | 2021-03-15 18:12 | RAD REPORT ---
EXAM DESCRIPTION: RAD - Chest Single View - 03/15/2021 5:44 pm CLINICAL HISTORY: AMS COMPARISON: April 02 TECHNIQUE: AP portable chest image was obtained 03/15/2021 5:44 pm . FINDINGS: Fibrotic lung pattern matches comparison. Severity could mask interstitial edema or infilt rate at either lung base. No peripheral mass or consolidation seen. Heart and vasculature are normal. No measurable pleural effusion and no pneumothorax. No acute bony abnormality seen. No acute aortic finding. Calcified breast implant capsules again noted. IMPRESSION: Chronic interstitial fibrotic lung pattern, similar to comparison, potentially masking a mild viral infiltrate or edema.
[2021-03-15 19:28] LABS: SARS-COV-2 RT PCR POSITIVE (NEGATIVE)
[2021-03-15] MEDS ORDERED: CASIRIVIMAB/IMDEVIMAB 10 ML VIAL ONE ×2 (20:18→21:08)
[2021-03-15] MEDS ORDERED: NA CHLORIDE 0.9% 250 ML ONE (20:19)
[2021-03-15 21:44] LABS: SARS-COV-2 RT PCR POSITIVE (NEGATIVE)
--- NOTE | 2021-03-15 23:01 | ER ---
Nurse's Notes [facility] Name: Christine Alcaraz Age: 80 yrs Sex: Female : 1940 Arrival Date: 03/15/2021 Time: 17:10 Bed Treatment Private MD: Diagnosis: Coronavirus infection, unspecified Presentation: 03/15 17:10 Chief complaint: EMS states: they were called to the patients house by the . It ap3 is reported that the patient was more altered than her baseline and slightly more weak than baseline as well. Coronavirus screen: Client presents with at least one sign or symptom that may indicate coronavirus-19. Standard/surgical mask placed on the client. Provider contacted for isolation considerations. Ebola Screen: No symptoms or risks identified at this time. Initial Sepsis Screen: Does the patient meet any 2 criteria? Yes Does the patient have a suspected source of infection? No. Patient's initial sepsis screen is negative. Risk Assessment: Do you want to hurt yourself or someone else? Patient reports no desire to harm self or others. Onset of symptoms was March 15, 2021. 17:10 Method Of Arrival: EMS: [facility] ap3 17:10 Acuity: AYLIN 3 ap3 Triage Assessment: 17:15 General: Appears comfortable, Behavior is cooperative, anxious. Pain: Denies pain. ap3 Neuro: Level of Consciousness is awake, Oriented to person. Cardiovascular: Patient's skin is warm and dry. Respiratory: Airway is patent Respiratory effort is even, unlabored. Musculoskeletal: Parent/caregiver report the patient having weakness in generalized weakness. Historical: - Allergies: 17:13 No Known Allergies; ap3 - Home Meds: 17:13 quetiapine 50 mg oral tab 1 tab at night [Active]; memantine 5 mg oral tab 1 tab 2 ap3 times per day [Active]; levetiracetam 250 mg oral tab [Active]; - PMHx: 17:13 Alzheimers; Dementia; ap3 - Immunization history:: Client reports receiving the 2nd dose of the Covid vaccine. - Social history:: Smoking status: Patient denies any tobacco usage or history of. Screenin:16 Abuse screen: Denies threats or abuse. Nutritional screening: No deficits noted. ap3 Tuberculosis screening: No symptoms or risk factors identified. Fall Risk No fall in past 12 months (0 pts). Secondary diagnosis (15 points) Alzheimer's, IV access (20 points). Ambulatory Aid- Crutches/Cane/Walker (15 pts). Gait- Normal/Bed Rest/Wheelchair (0 pts) Mental Status- Overestimates/Forgets Limitations (15 pts.). Total Tan Fall Scale indicates High Risk Score (45 or more points). Fall prevention measures have been instituted. Side Rails Up X 2 Frequent Obs/Assessments Occuring Family Present and informed to notify staff if the need to leave the bedside As available patient and family educated on Fall Prevention Program and Strategies. Assessment: 18:32 Reassessment: Patient and/or family updated on plan of care and expected duration. Pain ap3 level reassessed. Patient is alert, oriented x 3, equal unlabored respirations, skin warm/dry/pink. remains at the bedside. 20:04 Reassessment: Patient's requesting second COVID swab; lab notified of second lp1 swab specimen to be sent. Vital Signs: 17:10 BP 102 / 59; Pulse 105; Resp 19; Temp 100.3; Pulse Ox 98% ; Weight 49.9 kg; Height 5 ap3 ft. 2 in. (157.48 cm); 18:57 BP 116 / 82; Pulse 97; Resp 17; Pulse Ox 97% on R/A; ap3 23:04 BP 122 / 78; Pulse 94; Resp 16; Temp 98.9; Pulse Ox 96% ; jh5 17:10 Body Mass Index 20.12 (49.90 kg, 157.48 cm) ap3 ED Course: 17:10 Patient arrived in ED. ap3 17:11 Ruben Branch NP is PHCP. pm1 17:11 Sebastian Lopez MD is Attending Physician. pm1 17:13 Triage completed. ap3 17:16 Arm band placed on left wrist. EKG completed in triage. Results shown to . ap3 17:16 Patient has correct armband on for positive identification. Bed in low position. Call ap3 light in reach. Side rails up X2. Adult w/ patient. potline monitor on. Pulse ox on. NIBP on. Door closed. Noise minimized. 17:17 Angelina Andrade, CINTIA is Primary Nurse. ap3 17:41 Initial lab(s) drawn, by nc, sent to lab. Urine collected: straight cath specimen, tea ap3 colored, Flu and/or RSV swab sent to lab. Maintain EMS IV. Dressing intact. Good blood return noted. Site clean \T\ dry. Gauge \T\ site: 20g right AC. 17:44 Chest Single View XRAY In Process Unspecified. EDMS 17:46 Urine Microscopic Only Sent. mb7 17:46 Straight cath inserted, using sterile technique, Returned Patient tolerated well. mb7 17:56 CT Head Brain wo Cont In Process Unspecified. EDMS 19:27 Primary Nurse role handed off by Angelina Andrade, CINTIA mw2 21:40 Kyra Varner, RN is Primary Nurse. [facility] 23:03 No provider procedures requiring assistance completed. IV discontinued. 5 Administered Medications: 17:49 Drug: NS 0.9% 500 ml Route: IV; Rate: bolus; Site: right antecubital; ap3 18:11 Not Given (Physician Discretion): Rocephin (cefTRIAXone) 1 grams IV at calculated rate ap3 once; Given slow IV push per pharmacy instructions 22:21 Drug: REGEN-COV Dose Pack 120 mg/mL-120 mg/mL (EUA) 1 application Route: IV; Rate: [facility] calculated rate; Site: right antecubital; Outcome: 23:00 Discharge ordered by MD. pm1 23:04 Discharged to home via ambulance. [facility] 23:04 Condition: good 23:04 Discharge instructions given to significant other, Instructed on discharge instructions, follow up and referral plans. medication usage, safety practices, Demonstrated understanding of instructions, follow-up care, medications. 23:15 Patient left the ED. lp1 Signatures: Dispatcher [employer] EDMS Flaca Krishnan, RN RN lp1 Ruben Branch, DARRON ENCHILADA MAKER pm1 Angelina Andrade RN RN ap3 Rachele Friend mw2 Kyra Varner, CINTIA RN jh5 Celia Godinez mb7 Corrections: (The following items were deleted from the chart) 18:11 17:49 Rocephin (cefTRIAXone) 1 grams IV at calculated rate in right antecubital ap3 ap3
--- NOTE | 2021-03-15 23:01 | EDPHYS ---
Physician Documentation [facility] Name: Christine Alcaraz Age: 80 yrs Sex: Female : 1940 Arrival Date: 03/15/2021 Time: 17:10 Bed Treatment Private MD: ED Physician Sebastian Lopez HPI: 03/15 17:42 This 80 yrs old Female presents to ER via EMS with complaints of Fever. pm1 17:42 Onset: The symptoms/episode began/occurred this morning. Modifying factors: there are pm1 no obvious modifying factors. Associated signs and symptoms: Pertinent positives: generalized weakness and less interactive/engaging, Pertinent negatives: abdominal pain, cough, diarrhea, skin rash, shortness of breath, vomiting. Severity of symptoms: in the emergency department the symptoms are unchanged Pain is currently a 0 / 10. The patient has not recently seen a physician, the patient's primary care provider is Dr. Aguiar. Historical: - Allergies: 17:13 No Known Allergies; ap3 - Home Meds: 17:13 quetiapine 50 mg oral tab 1 tab at night [Active]; memantine 5 mg oral tab 1 tab 2 ap3 times per day [Active]; levetiracetam 250 mg oral tab [Active]; - PMHx: 17:13 Alzheimers; Dementia; ap3 - Immunization history:: Client reports receiving the 2nd dose of the Covid vaccine. - Social history:: Smoking status: Patient denies any tobacco usage or history of. ROS: 17:42 ENT: Negative for injury, pain, and discharge, Cardiovascular: Negative for chest pain, pm1 palpitations, and edema, Respiratory: Negative for shortness of breath, cough, wheezing, and pleuritic chest pain, Abdomen/GI: Negative for abdominal pain, nausea, vomiting, diarrhea, and constipation, Back: Negative for injury and pain, MS/Extremity: Negative for injury and deformity, Skin: Negative for injury, rash, and discoloration. 17:42 Constitutional: Positive for fever, Negative for poor PO intake. 17:42 Neuro: Positive for altered mental status, Generalized weakness, Negative for Focal weakness. 17:42 All other systems are negative. Exam: 17:42 Constitutional: This is a well developed, well nourished patient who is awake, alert, pm1 and in no acute distress. Head/Face: Normocephalic, atraumatic. 17:42 Back: No spinal tenderness. No costovertebral tenderness. Full range of motion. Skin: Warm, dry with normal turgor. Normal color with no rashes, no lesions, and no evidence of cellulitis. MS/ Extremity: Pulses equal, no cyanosis. Neurovascular intact. Full, normal range of motion. 17:42 Cardiovascular: Exam negative for acute changes, Rate: tachycardic, actual rate is 106 bpm, Rhythm: regular, Pulses: no pulse deficits are appreciated, Heart sounds: normal. 17:42 Respiratory: Exam negative for acute changes, the patient does not display signs of respiratory distress, Respirations: normal, Breath sounds: are clear throughout. 17:42 Abdomen/GI: Inspection: abdomen appears normal, Palpation: abdomen is soft and non-tender, in all quadrants. 17:42 Neuro: Exam negative for acute changes, Orientation: to person, Mentation: Baseline per for dementia, Motor: moves all fours. Vital Signs: 17:10 BP 102 / 59; Pulse 105; Resp 19; Temp 100.3; Pulse Ox 98% ; Weight 49.9 kg; Height 5 ap3 ft. 2 in. (157.48 cm); 18:57 BP 116 / 82; Pulse 97; Resp 17; Pulse Ox 97% on R/A; ap3 23:04 BP 122 / 78; Pulse 94; Resp 16; Temp 98.9; Pulse Ox 96% ; jh5 17:10 Body Mass Index 20.12 (49.90 kg, 157.48 cm) ap3 MDM: 17:12 Patient medically screened. misa 18:26 Physician consultation: Freeman Aguiar MD regarding patient's condition, Based on current pm1 result patient does not require admission to the hospital. However would like to be updated on the pending results for Covid and flu. 20:15 Physician consultation: Freeman Aguiar MD was called at 19:37, would like medications pm1 started, Patient can be given Regeneron and discharged home. 22:16 ED course: Patient with urine sample that is not convincing for UTI. Discussed with pm1 patient's and he agrees we will wait for urine culture for abx therapy if necessary. 22:59 Data reviewed: vital signs. Data interpreted: Pulse oximetry: on room air is 97 %. pm1 Interpretation: normal. Counseling: I had a detailed discussion with the patient and/or guardian regarding: the historical points, exam findings, and any diagnostic results supporting the discharge/admit diagnosis, lab results, radiology results, the need for outpatient follow up, to return to the emergency department if symptoms worsen or persist or if there are any questions or concerns that arise at home. 03/15 17:15 Order name: Urine Microscopic Only; Complete Time: 17:58 pm1 03/15 17:15 Order name: CBC with Diff; Complete Time: 17:46 pm1 03/15 17:15 Order name: Procalcitonin; Complete Time: 18:21 pm1 03/15 17:15 Order name: Lactate; Complete Time: 17:57 pm1 03/15 17:15 Order name: CMP; Complete Time: 17:57 pm1 03/15 17:15 Order name: COVID-19/FLU A+B (Document "Date of Onset" if Symptomatic); Complete Time: pm1 19:35 03/15 17:15 Order name: CT Head Brain wo Cont; Complete Time: 18:09 pm1 03/15 17:15 Order name: Chest Single View XRAY; Complete Time: 18:15 pm1 03/15 17:45 Order name: Urine Dipstick-Ancillary; Complete Time: 17:46 EDMT 03/15 17:59 Order name: Urine Culture EDMT 03/15 20:14 Order name: COVID-19/FLU A+B; Complete Time: 22:01 EDMT 03/15 17:15 Order name: Urine Dipstick-Ancillary (obtain specimen); Complete Time: 17:40 pm1 03/15 17:15 Order name: IV Saline Lock; Complete Time: 17:17 pm1 Administered Medications: 17:49 Drug: NS 0.9% 500 ml Route: IV; Rate: bolus; Site: right antecubital; ap3 18:11 Not Given (Physician Discretion): Rocephin (cefTRIAXone) 1 grams IV at calculated rate ap3 once; Given slow IV push per pharmacy instructions 22:21 Drug: REGEN-COV Dose Pack 120 mg/mL-120 mg/mL (EUA) 1 application Route: IV; Rate: jh5 calculated rate; Site: right antecubital; Disposition: 03/16 18:59 Co-signature as Attending Physician, Sebastian John MD I agree with the assessment and misa plan of care. Disposition Summary: 03/15/21 23:00 Discharge Ordered Location: Home pm1 Problem: new pm1 Symptoms: have improved pm1 Condition: Stable pm1 Diagnosis - Coronavirus infection, unspecified pm1 Followup: pm1 - With: Emergency Department - When: As needed - Reason: Worsening of condition Followup: pm1 - With: Private Physician - When: 2 - 3 days - Reason: Recheck today's complaints, Continuance of care, Re-evaluation by your physician Discharge Instructions: - Discharge Summary Sheet pm1 - COVID-19 pm1 - COVID-19 Frequently Asked Questions pm1 - 10 Things You Can Do to Manage Your COVID-19 Symptoms at Home - [facility] pm1 - COVID-19: Quarantine vs. Isolation - [facility] pm1 Forms: - Medication Reconciliation Form pm1 - Thank You Letter pm1 - Antibiotic Education pm1 - Prescription Opioid Use pm1 - SBAR form mw2 Signatures: Dispatcher [employer] EDSebastian Acosta MD MD cha Marinas, Patrick, DARRON BOARDMARKER pm1 Angelina Andrade RN RN ap3 Kyra Varner RN RN jh5
[2021-03-15 23:24] VITALS: BP 122/78; TEMP 98.9; O2SAT 96
--- NOTE | 2021-03-16 07:35 | EKG ---
Test Date: 2021-03-15 Test Time: 17:16:04 Media Manager: DIANA MEASUREMENT RESULTS: Intervals: Rate: 98 OR: 182 QRSD: 66 QT: 332 QTc: 423 Douglass: P: 73 OR: 182 QRS: 47 T: 62 INTERPRETIVE STATEMENTS: Normal sinus rhythm Low voltage QRS Borderline ECG Compared to ECG 04/02/2020 09:34:53 No significant changes Electronically Signed On 03-16-21 07:34:36 LINE PAINTING MACHINE OPERATOR by Floyd Carias
== END 2021-03-15 23:15 | disposition home or self-care (01) ==
LOC: ER 17:02
DX: U07.1 COVID-19 (principal); G30.9 Alzheimer's disease, unspecified; F02.80 Dementia in other diseases classified elsewhere, unspecified severity, without behavioral disturbance, psychotic disturbance, mood disturbance, and anxiety
CPT/HCPCS: 93005; 87088; 85025; 87086; 36415; 83605; 80053; 84145; 0240U ×2; 70450; 71045; 51702; 96374; 99284; J7050; J7040; 81003; 81015